=== PATIENT | female | born 1995 | race Caucasian/White ===

== ENCOUNTER 2021-03-14 13:26 | Outpatient (CLI) | payer BC, SELFPAY ==
[2021-03-14] VITALS (8 sets, daily range): BP systolic 107–127; BP diastolic 58–72; PULSE 79–88
[2021-03-14 14:23] LABS: Basophils Percent Auto 0.2 % (0.2-1.2); Eosinophils Absolute Auto 0.1 K/mm3 (0-0.3); Eosinophils Percent Auto 1.1 % (0-4.4); Hematocrit 32.9 % (37.0-47.0); Hemoglobin 11.3 g/dL (12.0-15.0); Immature Granulocyte Absolute 0.08 K/mm3 (0.00-0.031); Immature Granulocyte Percent A 0.6 % (0-0.5); Lymphocytes Absolute Auto 1.44 K/mm3 (0.9-3.2); Lymphocytes Percent Auto 11.5 % (18.3-44.2); Mean Corpuscular HGB Conc 34.3 g/dl (32-36); Mean Corpuscular Hemoglobin 31.7 pg (26-34); Mean Corpuscular Volume 92.4 fl (80-100); Monocytes Absolute Auto 0.7 K/mm3 (0.1-0.6); Monocytes Percent Auto 5.7 % (2.6-8.5); Neutrophils Absolute Auto 10.1 K/mm3 (1.3-6.7); Neutrophils Percent Auto 80.9 % (45.5-73.1); Platelet Count Result 172 k/mm3 (150-375); Red Blood Count 3.56 M/mm3 (4.2-5.4); Red Cell Distribution Width 13.1 % (11.5-14.5); White Blood Count 12.5 K/mm3 (4.5-10.0)
[2021-03-14 14:36] LABS: Alanine Aminotransferase 15 U/L (4-35); Albumin Level 3.3 g/dL (3.5-5.1); Alkaline Phosphatase 59 U/L (38-126); Anion Gap 8 mmol/L (8-16); Aspartate Amino Transferase 23 U/L (14-36); Bilirubin,Total 0.2 mg/dL (0.2-1.3); Blood Urea Nitrogen 4 mg/dL (7-17); Calcium 9.2 mg/dL (8.4-10.2); Carbon Dioxide 24 mmol/L (22-30); Chloride 106 mmol/L (98-107); Estimated Glomerular Filt Rate > 60; Glucose 112 mg/dL (65-105); Potassium 3.5 mmol/L (3.4-5.0); Sodium 138 mmol/L (137-145)
[2021-03-14 14:47] LABS: Add Urine Microscopic? YES; Appearance Urine Clear (Clear); Bacteria Urine 2+ /hpf; Bilirubin Urine Negative (Negative); Blood Urine Negative (Negative); Color Urine Straw (Yellow); Glucose Urine UA Negative (Negative); Ketones Urine Negative (Negative); Leukocyte Esterase Ur Trace LEU/UL (NEGATIVE); Nitrate Urine Negative (Negative); Protein Urine Negative (Negative); RBC Urine 0-2 /hpf (0-2); Squamous Epithelial Cell Urine Occasional /hpf (Few); Urobilinogen Urine Negative mg/dL (<2.0); WBC Urine 0-3 /hpf (0-3)
[2021-03-14 15:10] LABS: Specific Grav Ur 1.004 (1.001-1.035)
[2021-03-14 15:41] LABS: Creatinine Urine 19.4 mg/dL; Total Protein Urine Random 14 mg/dL; Ur Ttl Prot Creatinine Ratio 0.72 mg/mg (0-0.20)
== END 2021-03-14 15:34 | disposition home or self-care (01) ==
LOC: ANHOBOP 13:36 → ANHOBPP 13:37
PROVIDERS: Visit Provider Obstetrics & Gynecology
DX: O13.9 Gestational [pregnancy-induced] hypertension without significant proteinuria, unspecified trimester (principal); Z3A.00 Weeks of gestation of pregnancy not specified
CPT/HCPCS: 36415; 59025; 80053; 81001; 82570; 84156; 84550; 85025; 87086; 99199

== ENCOUNTER 2021-04-06 09:18 | Observation (INO) | payer OTHER, BC, SELFPAY ==
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
--- NOTE | 2021-04-06 09:18 | OBADM ---
This patient, Mami Sarkar, admitted to the OB room OB Post 113 for observation. Patient/family oriented to hospital policies and general routines including ID bracelet, bed and alarms, visiting hours, pain management, procedures, bathroom and other care routines, personal items, smoking policy, room service/diet, and visiting hours. Patient/Family are encouraged to report perceived risks to care and to ask questions if they do not understand what they are told or what they should do.
[2021-04-06 09:40] VITALS: BMI 34.7
[2021-04-06 09:45] VITALS: BP 115/91; PULSE 91
[2021-04-06 10:00] VITALS: BP 119/60; PULSE 90
[2021-04-06 10:15] VITALS: BP 113/61; PULSE 84
[2021-04-06 10:30] VITALS: BP 108/59; PULSE 80
[2021-04-06 10:45] VITALS: BP 118/56; PULSE 81
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
== END 2021-04-06 12:05 | disposition home or self-care (01) ==
PROVIDERS: Admitting Provider Obstetrics & Gynecology; Visit Provider Obstetrics & Gynecology
DX: Z04.1 Encounter for examination and observation following transport accident (principal); V89.2XXA Person injured in unspecified motor-vehicle accident, traffic, initial encounter
CPT/HCPCS: 76815; 84112; G0378; G0379

== ENCOUNTER 2021-05-25 12:20 | Outpatient (RCR) | payer BC, SELFPAY ==
--- NOTE | ~2021-05-25 | US_ITS ---
EXAMINATION: US OB BPP wo non-stress DATE: 05/25/2021 13:19 INDICATION: Nonreactive nonstress test in office, third trimester TECHNIQUE: Real-time pelvic ultrasound was performed. The interpreting radiologist was not present fo r the study. COMPARISON: None. FINDINGS: There is a single living fetus in vertex presentation. The placenta is anterior. heart rate is 123 beats per minute (bpm). Biophysical profile performed by the technologist: breathing (30 sec sustained breathing in 30 minutes): 2 out of 2 movement (3 gross body movements in 30 minutes): 2 out of 2 tone (one episode of rizsumm-nsbacmkoy-urvhney limb movement): 2 out of 2 Amniotic fluid pocket (2 cm): 2 out of 2 Total score: 8 out of 8 IMPRESSION: 1. Single living fetus in vertex presentation. 2. Biophysical profile 8 out of 8. Reviewed, dictated and finalized at location A.
[2021-05-25 12:52] VITALS: BP 118/75; PULSE 82
--- NOTE | 2021-05-25 13:38 | PC.NURSE ---
BPP 05/27, Per Sandra Bright CNM patient to be discharged to home.
== END 2021-07-04 10:03 | disposition home or self-care (01) ==
LOC: ANHOBOP 12:20
PROVIDERS: Visit Provider Obstetrics & Gynecology
DX: O26.893 Other specified pregnancy related conditions, third trimester (principal); Z3A.33 33 weeks gestation of pregnancy
CPT/HCPCS: 59025; 76819

== ENCOUNTER 2021-06-27 15:42 | Emergency (ER) | payer BC, SELFPAY ==
[2021-06-27 15:50] VITALS: BP 131/70; PULSE 76; RESP 16; TEMP 36.6; O2SAT 98
--- NOTE | 2021-06-27 16:07 | ED.EAR ---
HPI - Ear Problem General Chief complaint: Ear Stated complaint: ear pain Source: patient and RN notes reviewed Limitations: no limitations History of Present Illness HPI Narrative: The vaccinated patient, a non-smoker/non drinker who is a G1, P0 EDC 01 June at term, presents with right ear discomfort. Patient states she is previously mostly healthy with possible TMJ syndrome and only diet-controlled, related diabetes. She now has a 1 week history right TMJ and infra mastoid discomfort. Symptoms are mild slightly worse with eating. She wants to be checked for possible ear infection due to the upcoming induction of labor. No fever, URI?sinusitis, discharge, swelling; no loss of taste/smell, CP, vomiting/diarrhea, S OB; no abdominal pains, vaginal discharge, bleeding, decreased motion. Discussed possible causes [infectious, oral maxillary, neurologic/neuralgia] will provide symptomatic relief; patient advised to follow-up with dentist also [for bite block/mouthguard]. Related Data Home Medications Medication Instructions Recorded Confirmed escitalopram oxalate [Lexapro] 20 mg PO DAILY 06/22/21 06/22/21 prenat.vits,norman,tyg-jzmq-hbcnd 1 tablet PO HS 06/22/21 06/22/21 [ #2] Allergies Allergy/AdvReac Type Severity Reaction Status Date / Time No Known Allergies Allergy Verified 06/22/21 15:37 Review of Systems Review of Systems: General/Constitutional: No weight loss,fever Eyes: N0: Redness,discharge Ears/Nose/Throat: No: Epistaxis,ear discharge Respiratory: Denies: Hemoptysis Gastrointestinal: No Vomiting, Bleeding-rectal Skin: No Lumps, eruption Neurologic: No Focal Weakness,Sz Hematologic: Denies: Petechiae/Purpura Psychiatric: No: Suicida ideationl All Other Systems: Reviewed and Negative PMFSH Family History Family History (Updated 06/22/21 @ 15:41 by Kendall Arias RN) Father Colon cancer Grandparent Lung cancer Social History Social History Substance use: never Spiritual care concerns: No Comments At time of signature, agree with nursing past medical, surgical, social and family history. There is no relevant family history pertinent to the presenting complaint Exam Narrative: General Appearance: Well appearing, Well nourished, No distress EYE: PERRLA , EOMI Ears: External ear normal, Auditory canal normal, TM normal Nose: Normal nose, Nares clear Mouth/Throat: Normal appearing, Normal lips, dentition Neck: Supple, No adenopathy, Left palpable click @ TMJ with excursion Respiratory: Airway patent, No respiratory distress GI/ : soft, gravid, NT Skin: Warm, Dry Neurological: A&O x3, CN II-X intact Psychiatric: Normal mood, Normal affect Course Vital Signs Vital signs: Vital Signs Temperature 98 F 06/27/21 15:50 Pulse Rate 76 06/27/21 15:50 Respiratory Rate 16 06/27/21 15:50 Blood Pressure 131/70 06/27/21 15:50 Pulse Oximetry 98 06/27/21 15:50 Temperature 98 F 06/27/21 15:50 Pulse Rate 76 06/27/21 15:50 Respiratory Rate 16 06/27/21 15:50 Blood Pressure 131/70 06/27/21 15:50 Pulse Oximetry 98 06/27/21 15:50 Medical Decision Making Vital Signs Vital Signs: Vital Signs Temperature 98 F 06/27/21 15:50 Pulse Rate 76 06/27/21 15:50 Respiratory Rate 16 06/27/21 15:50 Blood Pressure 131/70 06/27/21 15:50 Pulse Oximetry 98 06/27/21 15:50 Temperature 98 F 06/27/21 15:50 Pulse Rate 76 06/27/21 15:50 Respiratory Rate 16 06/27/21 15:50 Blood Pressure 131/70 06/27/21 15:50 Pulse Oximetry 98 06/27/21 15:50 Discharge Plan Discharge Clinical Impression: Otalgia, right ear, Antepartum complication Patient Disposition: Home, Self-Care Condition: Stable Instructions: Swimmer's Ear (ED), Temporomandibular Disorder (ED) Prescriptions: New bnwwddor-gzygwoufq-WE 3.5-10,000-1 mg/mL-unit/mL-% solution 4 drop RIGHT EAR Q8H Qty: 10 RF: 0 No Action P
== END 2021-06-27 16:15 | disposition home or self-care (01) ==
PROVIDERS: Emergency Provider Emergency Medicine; PCP Family Medicine
DX: O99.891 Other specified diseases and conditions complicating pregnancy (principal); H92.01 Otalgia, right ear; Z3A.00 Weeks of gestation of pregnancy not specified
CPT/HCPCS: 99213; G0463

== ENCOUNTER 2021-07-02 04:51 | Inpatient (IN) | payer BC, SELFPAY ==
[2021-07-02] VITALS (43 sets, daily range): BP systolic 99–135; BP diastolic 52–84; PULSE 61–85; RESP 16–20; TEMP 36.3–37; O2SAT 96–100; BMI 35.4
--- OUTSIDE RECORDS SUMMARY | 2021-07-02 04:57 | XMS_ITS ---
:1995 Author Care Team Providers Name Role Phone MIKE STAHL MD Primary Care Provider [phone] Allergies Code Code System Name Reaction Severity Status Onset NKDA ? Medications Name Status Start Date Stop Date ? ? azelaic acid 15 % topical gel Completed ? APPLY TO FACE BID buspirone 5 mg tablet Active ? Not availa ble buspirone 7.5 mg tablet Completed ? 06/22/20 21 Take 1 tablet twice a day by oral route. cephalexin 500 mg capsule Completed ? 2020 TAKE ONE CAPSULE BY MOUTH THREE TIMES DAILY FOR ACUTE OPIOID TH ERAPY DAYS clindamycin 1 % lotion Active ? Not avail able APPLY TO FACE EVERY MORNING clomiphene citrate 50 mg tablet Completed ? 11/15/2020 TAKE 1 TABLET BY MOUTH EVERY DAY clonazepam 0.5 mg tablet Completed ? 021 Take 1 tablet 3 times a day by oral route. escitalopram 20 mg tablet Active ? Not av ailable TAKE 1 TABLET BY MOUTH EVERY DAY fluconazole 150 mg tablet Completed ? 2020 TAKE BY MOUTH 1 TABLET NOW AND MAY REPEAT IN 1 WEEK IF NEEDED freestyle mis lancets Active ? Not kanika ilable FreeStyle Lancets 28 gauge Active ? Not a vailable USE TO TEST BLOOD SUGAR FOUR TIMES DAILY DIRECTED FreeStyle Lite Meter kit Active ? Not kanika ilable USE TO TEST FOUR TIMES DAILY DIRECTED FreeStyle Lite Strips Active ? Not availa ble lhgjakjq-qdbkbjmqy-kcodrvabq 3.5 Active ? Not available mg/mL-10,000 unit/mL
--- OUTSIDE RECORDS SUMMARY | 2021-07-02 04:57 | XMS_ITS | Encounter Summary ---
:1995 Author Care Team Providers Name Role Phone Rosamaria Sorensen MD Primary Care Provider [phone] Reason for Visit None recorded. Assessment and Plan 1. Gestational diabetes mellitus , class A>1< Pt here for diet teaching. Amna t over ideal ranges for FBS and pp BS. Went over carb counting and carb ranges for e ach meal/snack. Gave ideas for foods to eat for meals/snacks. Discussed drink option s and to avoid soda and juice. Told pt she can go online to [employer] for meal options or to look up low carb meal recipes online for ideas as well. Pt picked up glucometer y and pp meals are normal. Fasting this morning was 53 and dinner the night before was 90. Encouraged bedtime snack and foods high in protein at dinner and for bedtime snack to help fasting sugars. Pt said she felt fine this morning when she woke up, just hungry. Told pt to continue checking BS QID and adjusting diet to fo llow low carb diet to try to keep BS within normal range. Pt aware if sugars aren't controlled by diet we would discuss starting insulin. Went over NST schedule with pt and importance of keeping these appts and checking BS for her and baby's health. P ts questions were answered and pt verbalized understanding. NEELIMA kumar ? non-stress test Discussion Note: None recorded.Patient educational handouts: No information available. Plan of Care Reminders Provider Appointments Ob Routine 07/06/2021 Gabriela Bright, 11:00AM CNM ? Surg Post 07/09/2021 Thang Merritt 10:00AM MD Juan ? [place] on or around ? 08/17/2021 Lab None ? ?
--- OUTSIDE RECORDS SUMMARY | 2021-07-02 04:57 | XMS_ITS | Encounter Summary ---
:1995 Author Care Team Providers Name Role Phone Rosamaria Sorensen MD Primary Care Provider [phone] Reason for Visit None recorded. Assessment and Plan 1. Gestational diabetes mellitus ? US, obstetric, follow-up Discussion Note: None recorded.Patient educational handouts: No information available. Plan of Care Reminders Provider Appointments Ob Routine 07/06/2021 Gabriela Bright, 11:00AM CNM ? Surg Post 07/09/2021 Thang Merritt 10:00AM MD Juan ? Xany on or around ? 08/17/2021 Lab None ? ? recorded. Referral None ? ? recorded. Procedures None ? ? recorded. Surgeries None ? ? recorded. Imaging US, 06/19/2021 [facility], Follow-up Medications Name Start Date ? ? buspirone 5 mg tablet ? Take 1 tablet twice a day by oral route for 30 days. clindamycin 1 % lotion ? APPLY TO FACE EVERY MORNING escitalopram 20 mg tablet ? TAKE 1 TABLET BY MOUTH EVERY DAY freestyle mis lancets ? FreeStyle Lancets 28 gauge ? USE TO TEST BLOOD SUGAR FOUR TIMES DAILY DIRECTED FreeStyle Lite Meter kit ? USE TO TEST FOUR TIMES DAILY DIRECTED FreeS
--- OUTSIDE RECORDS SUMMARY | 2021-07-02 04:57 | XMS_ITS | Encounter Summary ---
:1995 Author Care Team Providers Name Role Phone Rosamaria Sorensen MD Primary Care Provider [phone] Reason for Visit None recorded. Assessment and [...]
--- OUTSIDE RECORDS SUMMARY | 2021-07-02 04:57 | XMS_ITS | Encounter Summary ---
:1995 Author Care Team Providers Name Role Phone Rosamaria Sorensen MD Primary Care Provider [phone] Reason for Visit OB visit Assessment and Plan Assessment Note Patient is ___weeks . Discu ssed plan. 1. Suspected macrosomia ? section (SURG) Discussion Note: None recorded.Patient educational handouts: No information available. Plan of Care Reminders Provider Appointments Ob Routine 07/06/2021 Gabriela Renner 11:00AM SCAR Bright ? Surg Post 07/09/2021 Thang Merritt 10:00AM MD Juan ? Xany on or around ? 08/17/2021 Lab None ? ? recorded. Referral None ? ? recorded. Procedures None ? ? recorded. Surgeries 07/02/2021 [facility] (SURG) [facility] None ? ? recorded. Medications Name Start Date ? ? buspirone 5 mg tablet ? Take 1 tablet twice a day by oral route for 30 days. clindamycin 1 % lotion ? APPLY TO FACE EVERY MORNING escitalopram 20 mg tablet ? TAKE 1 TABLET BY MOUTH EVERY DAY freestyle mis lancets ? FreeStyle Lancets 28 gauge ?
--- OUTSIDE RECORDS SUMMARY | 2021-07-02 04:57 | XMS_ITS | Encounter Summary ---
:1995 Author Care Team Providers Name Role Phone Rosamaria Sorensen MD Primary Care Provider [phone] Reason for Visit None recorded. Assessment and [...]
--- OUTSIDE RECORDS SUMMARY | 2021-07-02 04:57 | XMS_ITS | Encounter Summary ---
:1995 Author Care Team Providers Name Role Phone Rosamaria Sorensen MD Primary Care Provider [phone] Reason for Visit OB visit OB [id number] EDC 07/08/2021 LMP 09/21/2020 Assessment and Plan Assessment Note Patient is __37_weeks . Dis cussed plan. 1. Routine care 2. Anxiety well managed ok to call for re fills ? buspirone 7.5 mg tablet Discussion Note: None recorded.Patient educational handouts: No information available. Plan of Care Reminders Provider Appointments Ob Routine 07/06/2021 Gabriela Bright, 11:00AM CNM ? Surg Post 07/09/2021 Thang Merritt 10:00AM MD Juan ? [place] on or around ? 08/17/2021 Lab None ? ? recorded. Referral None ? ? recorded. Procedures None ? ? recorded. Surgeries None ? ? recorded. Imaging None ? ? recorded. Medications Name Start Date ? ? buspirone 5 mg tablet ? Take 1 tablet twice a day by oral route for 30 days. clindamycin 1 % lotion ? APPLY TO FACE EVERY MORNING escitalopram 20 mg tablet ? TAKE 1 TABLET BY MOUTH EVERY DAY lynnette cortes
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
--- OUTSIDE RECORDS SUMMARY | 2021-07-02 04:57 | XMS_ITS | Encounter Summary ---
:1995 Author Care Team Providers Name Role Phone Rosamaria Sorensen MD Primary Care Provider [phone] Reason for Visit OB visit OB [id number] EDC 07/08/2021 LMP 09/21/2020 Assessment and Plan Assessment Note Patient is 36___weeks . Dis cussed plan. 1. Routine care Discussion Note: None recorded.Patient educational handouts: No information available. Plan of Care Reminders Provider Appointments Ob Routine 07/06/2021 Gabriela Bright, 11:00AM CNM ? Surg Post 07/09/2021 Thang Downs Op 10:00AM MD Juan ? Xany on or [...]
--- OUTSIDE RECORDS SUMMARY | 2021-07-02 04:57 | XMS_ITS | Encounter Summary ---
:1995 Author Care Team Providers Name Role Phone Rosamaria Sorensen MD Primary Care Provider [phone] Reason for Visit None recorded. Assessment and [...]
--- OUTSIDE RECORDS SUMMARY | 2021-07-02 04:57 | XMS_ITS | Encounter Summary ---
:1995 Author Care Team Providers Name Role Phone Rosamaria Sorensen MD Primary Care Provider [phone] Reason for Visit None recorded. Assessment and [...]
--- OUTSIDE RECORDS SUMMARY | 2021-07-02 04:58 | XMS_ITS | Encounter Summary ---
:1995 Author Care Team Providers Name Role Phone Rosamaria Sorensen MD Primary Care Provider [phone] Reason for Visit None recorded. Assessment and [...]
--- OUTSIDE RECORDS SUMMARY | 2021-07-02 04:58 | XMS_ITS | Encounter Summary ---
:1995 Author Care Team Providers Name Role Phone Rosamaria Sorensen MD Primary Care Provider [phone] Reason for Visit None recorded. Assessment and [...]
--- OUTSIDE RECORDS SUMMARY | 2021-07-02 04:58 | XMS_ITS | Encounter Summary ---
:1995 Author Care Team Providers Name Role Phone Rosamaria Sorensen MD Primary Care Provider [phone] Reason for Visit OB visit Assessment and Plan Assessment Note Patient is _35__weeks . Dis cussed plan. 1. Routine care [...] USE TO TEST FOUR TIMES DAILY DIRECTED Free
--- OUTSIDE RECORDS SUMMARY | 2021-07-02 04:58 | XMS_ITS | Encounter Summary ---
:1995 Author Care Team Providers Name Role Phone Rosamaria Sorensen MD Primary Care Provider [phone] Reason for Visit None recorded. Assessment and [...]
--- OUTSIDE RECORDS SUMMARY | 2021-07-02 04:58 | XMS_ITS | Encounter Summary ---
:1995 Author Care Team Providers Name Role Phone Rosamaria Sorensen MD Primary Care Provider [phone] Reason for Visit None recorded. Assessment and [...]
--- OUTSIDE RECORDS SUMMARY | 2021-07-02 04:58 | XMS_ITS | Encounter Summary ---
:1995 Author Care Team Providers Name Role Phone Rosamaria Sorensen MD Primary Care Provider [phone] Reason for Visit None recorded. Assessment and [...] and pt verbalized understanding. NEELIMA kumar ? US, obstetric, follow-up Discussion Note: None recorded.Patient educational handouts: No information available. Plan of Care Reminders Provider Appointments Ob Routine 07/06/2021 Gabriela Bright, 11:00AM CNM ? Surg Post 07/09/2021 Thang Merritt 10:00AM MD Juan ? Biju on or around ? 08/17/2021 Lab None ? ?
--- OUTSIDE RECORDS SUMMARY | 2021-07-02 04:58 | XMS_ITS | Encounter Summary ---
:1995 Author Care Team Providers Name Role Phone Rosamaria Sorensen MD Primary Care Provider [phone] Reason for Visit None recorded. Assessment and Plan 1. Gestational diabetes mellitus , class A>1< ? non-stress test Discussion Note: None recorded.Patient educational handouts: No information available. Plan of Care Reminders Provider Appointments Ob Routine 07/06/2021 Gabriela Bright, 11:00AM CNM ? Surg Post 07/09/2021 Thang Merritt 10:00AM MD Juan ? Xany on or around ? 08/17/2021 Lab None ? ? recorded. Referral None ? ? recorded. Procedures None ? ? recorded. Surgeries None ? ? recorded. Imaging Non-stress 05/22/2021 [facility] Test Medications Name Start Date ? ? buspirone [...] FOUR TIMES DAILY DIRECTED FreeStyle Lite Strips ? neom
--- OUTSIDE RECORDS SUMMARY | 2021-07-02 04:58 | XMS_ITS | Encounter Summary ---
:1995 Author Care Team Providers Name Role Phone Rosamaria Sorensen MD Primary Care Provider [phone] Reason for Visit OB visit Assessment and Plan 1. Routine care 2. Large for gestation age fetus Discussion Note: None recorded.Patient educational handouts: No [...] TIMES DAILY DIRECTED FreeStyle Lite Strips ? wyysrpgq-vickycjsg-rkyewqznw 3.5 mg/mL-
--- OUTSIDE RECORDS SUMMARY | 2021-07-02 04:58 | XMS_ITS | Encounter Summary ---
:1995 Author Care Team Providers Name Role Phone Rosamaria Sorensen MD Primary Care Provider [phone] Reason for Visit None recorded. Assessment and [...]
--- OUTSIDE RECORDS SUMMARY | 2021-07-02 04:58 | XMS_ITS | Encounter Summary ---
:1995 Author Care Team Providers Name Role Phone Rosamaria Sorensen MD Primary Care Provider [phone] Reason for Visit None recorded. Assessment and [...]
--- OUTSIDE RECORDS SUMMARY | 2021-07-02 04:58 | XMS_ITS | Encounter Summary ---
:1995 Author Care Team Providers Name Role Phone Rosamaria Sorensen MD Primary Care Provider [phone] Reason for Visit None recorded. Assessment and [...]
--- OUTSIDE RECORDS SUMMARY | 2021-07-02 04:58 | XMS_ITS | Encounter Summary ---
:1995 Author Care Team Providers Name Role Phone Rosamaria Sorensen MD Primary Care Provider [phone] Reason for Visit OB visit [id number] Assessment and Plan 1. Routine care Discussion Note: None recorded.Patient [...] TIMES DAILY DIRECTED FreeStyle Lite Strips ? rwrptbur-ncfkdyjlw-zynizgmgb 3.5 mg/mL-10,000 unit/mL- 1 % ear ?
--- OUTSIDE RECORDS SUMMARY | 2021-07-02 04:58 | XMS_ITS | Encounter Summary ---
:1995 Author Care Team Providers Name Role Phone Rosamarai Sorensen MD Primary Care Provider [phone] Reason for Visit OB visit OB [id number] EDC 07/08/2021 LMP 09/21/2020 Assessment and Plan Assessment Note Patient is 34___weeks . Dis cussed plan. 1. Routine care [...]
--- OUTSIDE RECORDS SUMMARY | 2021-07-02 04:58 | XMS_ITS | Encounter Summary ---
:1995 Author Care Team Providers Name Role Phone Rosamaria Sorensen MD Primary Care Provider [phone] Reason for Visit None recorded. Assessment and Plan 1. Abnormal heart rate ? US, obstetric, biophysical profile + non-stress test Discussion Note: None recorded.Patient educational [...] Surgeries None ? ? recorded. Imaging US, 06/01/2021 [facility], Biophysical Profile + Non-stress Test Medications Name Start Date ? ? buspirone 5 mg tablet ? Take 1 tablet twice a day by oral route for 30 days. clindamycin 1 % lotion ? APPLY TO FACE EVERY MORNING escitalopram 20 mg tablet ? TAKE 1 TABLET BY MOUTH EVERY DAY freestyle mis lancets ? FreeStyle Lancets 28 gauge ? USE TO TEST BLOOD SUGAR FOUR TIMES DAILY DIREC
--- OUTSIDE RECORDS SUMMARY | 2021-07-02 04:58 | XMS_ITS | Encounter Summary ---
:1995 Author Care Team Providers Name Role Phone Rosamaria Sorensen MD Primary Care Provider [phone] Reason for Visit None recorded. Assessment and [...]
--- OUTSIDE RECORDS SUMMARY | 2021-07-02 04:59 | XMS_ITS | Encounter Summary ---
:1995 Author Care Team Providers Name Role Phone Rosamaria Sorensen MD Primary Care Provider [phone] Reason for Visit None recorded. Assessment and [...] answered and pt verbalized understanding. NEELIMA kumar Discussion Note: None recorded.Patient educational handouts: No information available. Plan of Care Reminders Provider Appointments Ob Routine 07/06/2021 Gabriela Bright, 11:00AM CNM ? Surg Post 07/09/2021 Thang Merritt 10:00AM MD Juan ? Biju on or around ? 08/17/2021 Lab None ? ? recorded.
--- OUTSIDE RECORDS SUMMARY | 2021-07-02 04:59 | XMS_ITS | Encounter Summary ---
:1995 Author Care Team Providers Name Role Phone Rosamaria Sorensen MD Primary Care Provider [phone] Reason for Visit OB visit OB [id number] EDC 06/28/2021 LMP 09/21/2020 Assessment and Plan Assessment Note Patient is _28__weeks . Dis cussed plan. 1. Routine care [...]
--- OUTSIDE RECORDS SUMMARY | 2021-07-02 04:59 | XMS_ITS | Encounter Summary ---
:1995 Author Care Team Providers Name Role Phone Rosamaria Sorensen MD Primary Care Provider [phone] Reason for Visit OB visit Assessment and Plan Assessment Note Patient is _30__weeks . Dis cussed plan. 1. Routine care [...]
--- NOTE | 2021-07-02 05:09 | LDADM ---
This patient, Mami Sarkar, was admitted to Labor/Delivery/Recovery 120 on 07/02/21 at 04:51. Plans for labor, pain management and were discussed with patient. Patient/family oriented to hospital policies and general routines including ID bracelet, bed and alarms, visiting hours, pain management, procedures, bathroom and other care routines, personal items, smoking policy, room service/diet and guest tray routines, infant security routines, and visiting hours. Patient/Family are encouraged to report perceived risks to care and to ask questions if they do not understand what they are told or what they should do. See [facility] for further documentation.
[2021-07-02 05:39] LABS: Glucose Point of Care 72 mg/dl (65-105)
[2021-07-02 05:45] LABS: Basophils Percent Auto 0.4 % (0.2-1.2); Eosinophils Absolute Auto 0.1 K/mm3 (0-0.3); Eosinophils Percent Auto 1.4 % (0-4.4); Hematocrit 37.6 % (37.0-47.0); Hemoglobin 12.7 g/dL (12.0-15.0); Immature Granulocyte Absolute 0.05 K/mm3 (0.00-0.031); Immature Granulocyte Percent A 0.5 % (0-0.5); Immature Platelet Fraction Pct 16.1 % (0.9-11.2); Lymphocytes Absolute Auto 2.06 K/mm3 (0.9-3.2); Mean Corpuscular HGB Conc 33.8 g/dl (32-36); Mean Corpuscular Hemoglobin 30.8 pg (26-34); Mean Corpuscular Volume 91.3 fl (80-100); Monocytes Absolute Auto 0.7 K/mm3 (0.1-0.6); Monocytes Percent Auto 7.7 % (2.6-8.5); Neutrophils Absolute Auto 6.4 K/mm3 (1.3-6.7); Platelet Count Result 137 k/mm3 (150-375); Red Blood Count 4.12 M/mm3 (4.2-5.4); White Blood Count 9.4 K/mm3 (4.5-10.0)
[2021-07-02] MEDS: LACTATED RINGERS 1,000 ML 999 ML IV CONT ×2 (05:48→06:31)
--- NOTE | 2021-07-02 07:23 | PM.IMHP ---
H&P: HPI History of Present Illness Date/Time: 07/02/21 07:23 this patient is a 26-year-old 1 at 39 weeks gestation with a macrosomic infant. We have agreed to perform delivery. She understands that injuries may occur during surgery the result in hospitalization, more surgery, and severe illness. She denies any nausea, vomiting, fever, chills. She denies any chest pain or shortness of breath. She denies any contractions, loss of fluid, vaginal bleeding. Chief Complaint: Term Review of Systems Review of Systems: All systems reviewed & are unremarkable except as noted in HPI and below PMFSH Past Medical History Medical History (Updated 07/02/21 @ 07:25 by Azael Martinez MD) GDM (gestational diabetes mellitus) Family History Family History Father Colon cancer Grandparent Lung cancer Social History Social History Smoking status: Never smoker Second hand tobacco smoke exposure: No Substance use: never Spiritual care concerns: No Meds Home Medications and Allergies Home Medications Medication Instructions Recorded Confirmed Type escitalopram oxalate [Lexapro] 20 mg PO DAILY 06/22/21 06/22/21 History prenat.vits,norman,vle-amkm-nroqj 1 tablet PO HS 06/22/21 06/22/21 History [ #2] Allergies Allergy/AdvReac Type Severity Reaction Status Date / Time No Known Allergies Allergy Verified 06/22/21 15:37 Vital Signs Vital Signs - 24 hr 07/02/21 05:34 07/02/21 05:35 07/02/21 07:21 Temperature 97.8 F Pulse Rate 77 77 Respiratory Rate 18 Blood Pressure 134/71 129/72 Exam Const: General: healthy appearing, comfortable and no acute distress Resp: Auscultation: clear to auscultation bilaterally, no rales, no rhonchi and no wheezes Cardio: Rate: regular rate Heart sounds: no click, no murmurs and no rubs GI: Inspection: non-distended Auscultation: normal bowel sounds Extrem: General: normal to inspection, no pedal edema and no calf tenderness H&P: Results Labs Labs: Short CBC 07/02/21 Range/Units 05:30 WBC 9.4 (4.5-10.0) K/mm3 Hgb 12.7 (12.0-15.0) g/dL Hct 37.6 (37.0-47.0) % Plt Count 137 L (150-375) k/mm3 Assessment and Plan Assessment and plan (1) Term : Code(s): Z34.90 - Encounter for supervision of normal , unspecified, unspecified trimester Status: Acute (2) Macrosomia: Code(s): P08.0 - Exceptionally large baby Status: Acute Assessment and Plan: The patient is a 26-year-old 1 at 39 weeks gestation with macrosomic infant. We have agreed to perform delivery. She understands the risks, benefits, and alternatives. She has completed the informed consent process and is ready to proceed.
--- NOTE | 2021-07-02 07:26 | WPDHPUPDATE1 ---
History and Physical Update Update Date/Time: 07/02/21 07:26 History and Physical has been reviewed, including an updated exam of the patient. There are NO changes in the patient's condition. Risks, benefits, and alternatives have been discussed and questions answered. Patient agrees to proceed with procedure.
[2021-07-02] MEDS: ceFAZolin 2 GM/D5W 50 ML 2 GM/50 ML BAG IVPB (07:43)
--- NOTE | 2021-07-02 08:20 | W.PM.PROC2 ---
Procedure Note - Detailed Date of Procedure 07/02/21 Pre-op Diagnosis LGA, Elective LTCS Post-op Diagnosis same Procedure Performed LTCS Surgeon Azael Martinez MD Anesthesia spinal Indications elective Findings Normal gestational maternal anatomy, LGA 4100gm infant, normal Apgars. Description of Procedure The patient was taken the operating room. She was prepped and draped in dorsal supine position with a leftward tilt. This was done after spinal anesthetic was applied. A low-transverse skin incision was made and carried down till of the fascia with the knife. The fascial incision was made with the knife. The fascial incision was extended laterally with Vaca scissors. The fascia was tented upward superiorly and inferiorly the rectus muscles were dissected off bluntly. The rectus muscles were the midline. The preperitoneal fat and peritoneum were dissected open bluntly at the superior aspect of the rectus muscles. The peritoneal incision was extended superior and inferior with good position of bladder. The uterine incision was made with a scalpel down to the level of the amniotic cavity. The amniotic cavity was entered bluntly. The was delivered. The cord was clamped and cut and the infant was handed off to waiting pediatric staff. Cord bloods were obtained. The placenta was removed manually. The uterus was exteriorized. The uterus was cleared of all clots, debris and membranes. The uterus was closed in 0 Vicryl running lock fashion. An imbricating over a was placed along the incision line as well. The uterus was returned to the abdomen. The gutters were cleared of all clots and debris. The fascia was closed with 0 Vicryl running fashion. The subcutaneous tissue was irrigated pinpoint bleeders were cauterized. The skin was closed with subcuticular absorbable pooja. The skin incision line was covered with glue. The patient tolerated the procedure well. She has taken recovery room in stable condition. Sponge lap and needle counts were correct x2. Estimated Blood Loss 795 Complications No immediate complications Condition stable Disposition PACU
[2021-07-02] MEDS: OXYTOCIN 30 UNITS/NS 500 ML 30 UNITS/500 ML BAG 125 UNITS IV CONT (08:47)
[2021-07-02 09:29] LABS: Rapid Plasma Reagin Non-Reactive (NonReactive)
--- NOTE | 2021-07-02 10:50 | PC.NURSE ---
Pt recovery completed. Pt wheeled into nursery via stretcher. Pt able to do skin to skin and attempt to breastfeed with nursery nurses help.
--- NOTE | 2021-07-02 11:05 | PC.NURSE ---
Pt moving to room 288 for pp care once done feeding. PP RN Amy Alejandro given report. PP RN is helping in nursery at this time.
--- NOTE | 2021-07-02 11:55 | OBPPTRN ---
Patient transferred to post room #288 via stretcher. Support person present. Oriented to unit, room, information board, rooming in, admission packet and security measures. Patient verbalizes understanding.
[2021-07-02] MEDS: LORATADINE 10 MG TABLET PO (12:37)
[2021-07-02] MEDS: KETOROLAC 30 MG/ML VIAL (*BKC) IV PUSH ×2 (12:38→19:41)
[2021-07-02] MEDS: DEXTROSE 5%/0.45% SOD CHL 1,000 ML 125 ML IV CONT (14:37)
[2021-07-02] MEDS: ESCITALOPRAM OXALATE 10 MG TABLET 20 MG PO (22:53)
[2021-07-02] MEDS: DOCUSATE SODIUM 100 MG CAPSULE PO (22:53)
[2021-07-03] MEDS: IBUPROFEN 600 MG TABLET PO ×3 (04:54→17:42)
[2021-07-03 05:00] VITALS: BP 105/65; PULSE 80; RESP 16; TEMP 36.7; O2SAT 96
[2021-07-03 06:23] LABS: Hematocrit 32.5 % (37.0-47.0); Hemoglobin 10.8 g/dL (12.0-15.0); Mean Corpuscular HGB Conc 33.2 g/dl (32-36); Mean Corpuscular Hemoglobin 30.9 pg (26-34); Mean Corpuscular Volume 93.1 fl (80-100); Mean Platelet Volume 12.6 fl (7.4-10.4); Platelet Count Result 133 k/mm3 (150-375); Red Blood Count 3.49 M/mm3 (4.2-5.4); Red Cell Distribution Width 13.2 % (11.5-14.5); White Blood Count 10.6 K/mm3 (4.5-10.0)
--- NOTE | 2021-07-03 08:00 | PC.NURSE ---
Mother called out for assist with feeding. Mother reports infant is sleepy and makes eager attempts to latch with good bursts of nursing. Mother used a nipple shield for most feedings. Mother states she will attempt to remove shield after a few minutes of nursing and infant has been able to complete feeding without shield at times. Skin is intact on both nipples, no redness and bruising noted. Nipple care reviewed of lanolin after feedings, warm compresses as needed. Discussed nipple shield precautions and possible complications. Instructions given on application and cleaning of shield. Patient able to return demonstration on proper application of shield. Discussed the need to initiate pumping if infant continues to nurse with the shield. Patient verbalizes understanding. Reviewed infant feeding cues, frequencies, duration of feedings, feeding elimination flow sheet, and signs of adequate intake. Demonstrated stimulation techniques to wake infant for feeding. Assisted with infant to breast. Reviewed positioning/alignment in cross cradle, holding breast in ?U? hold and guided asymmetrical latch on. Reviewed rational for each. Infant able to latch correctly within a few attempts with shield. nursed eagerly with steady draws and occasional swallowing noted for bursts followed with long pausing. Reviewed signs of a correct latch, effective nursing and suck swallow ratio. Infant was able to maintain latch without discomfort to mother. Suggested mother stimulate while feeding to increase stimulate, increase intake and to assist with maintaining deep latch. Demonstrated how to adjust latch more deeply while feeding if needed Instructed mother to call out for RN assistance if she is unable to latch infant for feeding or she has discomfort with nursing. Instructed feeding should be initiated three hours from start of last feeding or if feeding cues are noted before. Mother voiced understanding of information shared.
--- NOTE | 2021-07-03 08:43 | PM.OBPNVD ---
OB - PN: Subj Subjective Date/time seen: 07/03/21 08:43 Patient comments: no complaints, pain well controlled, tolerating diet and flatus present OB - PN: Obj Data Labs CBC & Chem 7: 07/03/21 06:14 Labs: Laboratory Results - last 24 hr 07/02/21 07/03/21 05:30 06:14 WBC 10.6 H RBC 3.49 L Hgb 10.8 L Hct 32.5 L MCV 93.1 MCH 30.9 MCHC 33.2 RDW 13.2 Plt Count 133 L MPV 12.6 H Immature Gran % (Auto) Not Reportable Neut % (Auto) Not Reportable Lymph % (Auto) Not Reportable Wilcox % (Auto) Not Reportable Eos % (Auto) Not Reportable Baso % (Auto) Not Reportable Lymph # (Auto) Not Reportable Wilcox # (Auto) Not Reportable Eos # (Auto) Not Reportable Baso # (Auto) Not Reportable Abs Immat Gran (auto) Not Reportable Absolute Neuts (auto) Not Reportable Absolute Nucleated RBC Not Reportable Nucleated RBC % Not Reportable RPR Non-reactive OB - PN A/P Plan day: 1 Comments: Post Op LTCS - no problems, routine recovery Time Spent With Patient Time: Total time spent is greater than 50% in coordination of care (as documented) at patient's floor/unit and/or counseling patient: Exam Const: General: cooperative, healthy appearing, comfortable and no acute distress Resp: Auscultation: no crackles, no rales, no rhonchi and no wheezes Cardio: Rhythm: regular rhythm Heart sounds: no click and no murmurs GI: Inspection: non-distended Auscultation: normal bowel sounds Extrem: General: normal to inspection, no pedal edema and no calf tenderness
[2021-07-03] MEDS: MULTIVIT/MIN/PREN/FOL AC/IRON TABLET 1 TAB PO (09:49)
[2021-07-03] MEDS: DOCUSATE SODIUM 100 MG CAPSULE PO ×2 (09:50→17:44)
[2021-07-03] MEDS: TETANUS,DIPHTHERIA,AC PERTUSSIS ADULT (0.5 ML) BOOSTRIX IM (10:42)
--- NOTE | 2021-07-03 11:00 | WPDANLDPN2 ---
Anes-Prog Note L&D Date/Time: 07/03/21 11:00 Comfortable throughout: section Neuraxial method: spinal Epidural/Spinal procedure site: clean & non-tender Neuro status: Neuro function grossly intact. Cardiovascular status: normal Respiratory status: normal Airway patency: baseline Mental status: baseline Post-Op hydration status: normal Vital Signs: Last Vital Signs Temp 36.7 C 07/03/21 05:00 Pulse 80 07/03/21 05:00 Resp 16 07/03/21 05:00 BP 105/65 07/03/21 05:00 Pulse Ox 96 07/03/21 05:00 Pain score (VAS): 0 I/O: Intake & Output 07/02/21 07/03/21 07/03/21 23:59 07:59 15:59 Intake Total 2500 400 Output Total 1800 1100 600 Balance 700 -700 -600 Post-procedural complaints: none Patient feedback: Patient satisfied with anesthetic care.
--- NOTE | 2021-07-03 11:01 | WPDANLDNPN2 ---
Anes-Prog Note L&D-Neuraxial Date/Time: 07/03/21 11:01 Neuraxial medications: intrathecal PF morphine Opiod-related complaints: none Patient feedback: Patient satisfied with post-operative pain management.
[2021-07-03] MEDS: SIMETHICONE 80 MG TAB.CHEW PO ×3 (12:40→20:25)
--- NOTE | 2021-07-03 16:30 | PC.NURSE ---
PT introductions made and plan of care discussed per post op c section, pain management, breast feeding, supplementing and pumping, daily care activities. PT and spouse both recipients to such instructions and no barriers to learning identified at this time. PT received instructions this shift per one to one discussion, mom baby care guide and demonstrations. PT verbalized understanding of such care.
[2021-07-03] MEDS: ACETAMINOPHEN 325 MG TABLET 650 MG PO (17:43)
[2021-07-03] MEDS: LANOLIN (LANSINOH) 7.5 GM CREAM 1 APPLIC TOPICAL (17:45)
[2021-07-03 20:10] VITALS: BP 118/58; PULSE 70; RESP 16; TEMP 36.8; O2SAT 99
[2021-07-03] MEDS: HYDROcodone/acetaminophen (*CRX) 5-325 MG TABLET 1 TAB PO (20:23)
[2021-07-03] MEDS: ESCITALOPRAM OXALATE 10 MG TABLET 20 MG PO (20:40)
[2021-07-04] MEDS: SIMETHICONE 80 MG TAB.CHEW PO ×2 (01:17→08:28)
[2021-07-04] MEDS: IBUPROFEN 600 MG TABLET PO ×2 (01:18→08:28)
[2021-07-04] MEDS: ACETAMINOPHEN 325 MG TABLET 650 MG PO ×2 (01:19→08:28)
--- NOTE | 2021-07-04 08:11 | PM.OBPNVD ---
OB - PN: Subj Subjective Date/time seen: 07/04/21 08:11 Patient comments: no complaints, pain well controlled, incisional pain, tolerating diet and flatus present OB - PN: Obj Data Labs CBC & Chem 7: 07/03/21 06:14 OB - PN A/P Plan day: 2 Plan: routine care Comments: POD#2 LTCS - no problems, Time Spent With Patient Time: Total time spent is greater than 50% in coordination of care (as documented) at patient's floor/unit and/or counseling patient: Exam Const: General: comfortable, no acute distress and alert Resp: Effort & Inspection: normal respiratory effort Auscultation: no crackles, no rales and no rhonchi Cardio: Rate: regular rate Heart sounds: no click, no murmurs and no rubs GI: Inspection: non-distended GI Palp: No Tenderness to palpation present (GI) Auscultation: normal bowel sounds Other: Incision - CDI Extrem: General: normal to inspection, no pedal edema and no calf tenderness
--- NOTE | 2021-07-04 08:12 | P.DS_ITS ---
DS: Admitting Diagnosis Discharge Date 07/04/2021 Admitting Diagnosis Term DS: Discharge Diagnosis Discharge Diagnosis (1) Macrosomia: Code(s): P08.0 - Exceptionally large baby Status: Acute (2) Term : Code(s): Z34.90 - Encounter for supervision of normal , unspecified, unspecified trimester Status: Acute OB - DS: Summary OB Procedures : None OB Procedures Intrapartum: OB Procedures: : None Peripartum Data Infant Delivery Method: Section Procedures: Procedures Operation Date: 07/02/21 07:30 Actual Procedure Side Surgeon p Section Azael Martinez MD Time Spent with Patient Time attestation: Total time spent providing and/or coordinating discharge servi luis: Discharge Plan Discharge Discharging Clinician: Azael Martinez Patient Disposition: Home, Self-Care Activity: pelvic rest Diet: regular Patient Instructions: Antibiotic Form Stand Alone Forms: General Discharge Information Follow-up/Referrals: Azael Martinez MD [Physician] - Discharge Medications: New hydrocodone-acetaminophen 5-325 mg tablet 1 - 2 tablet PO Q4H PRN (Reason: pain) Qty: 25 RF: 0 Continued #2 Tablet 1 tablet PO HS RF: 0 escitalopram oxalate [Lexapro] 20 mg Tablet 20 mg PO DAILY RF: 0 Date of admission: 07/02/21 04:51 Primary Care Provider: Edu,Rosamaria Admitting Provider: Azael Martinez Attending physician on admission: Azael Martinez Condition: Stable
[2021-07-04] MEDS: DOCUSATE SODIUM 100 MG CAPSULE PO (08:28)
[2021-07-04] MEDS: MULTIVIT/MIN/PREN/FOL AC/IRON TABLET 1 TAB PO (08:28)
[2021-07-04 08:30] VITALS: BP 118/67; PULSE 73; RESP 18; TEMP 36.8; O2SAT 100
--- NOTE | 2021-07-04 09:45 | PC.NURSE ---
Mother is able to independently latch with appropriate positioning/alignment without nipple shield for the last several feedings. She denies any nipple discomfort, is feeding as required and waking to feed if needed. Infant has had several effective feedings followed with supplementation in the past 24 hours, and is currently meeting outcomes for weight, output, jaundice and feeding frequencies. Infant is more awake and eager to feed today. continues to require supplementation as mother's choice and is not always satisfied after on both breasts. Mother continues to pump without difficulties or discomfort after all feedings and will until her milk is well established and infant does not require supplement. Mother states she feels confident to continue current feeding plan at home. Mother has her own double electric pump for home use. Discussed increasing supplementation as requires to satisfactions. Reviewed paced feeding and suggested to stop when infant is satisfied, as long as is having required output. With increased supplementation may not want to feed for 4 hours. Mother will continue to pump on feeding schedule and will increase session to 20 minutes if pumping every 4 hours. Reviewed once mother?s milk is established and is effectively feeding infant may have increased intake with nursing. If is effective feeding with long draws and frequent swallowing noted , may be ready to decrease/discontinue supplementation. Advised not to discontinue supplement until ICP, Follow-Up RN or LC has a pre/post weighted evaluation of infant feeding. Reviewed transition to breast milk, signs of adequate intake, and engorgement/relief. Instructed to call ICP if intake/output less than required. Reviewed regular medications mother is taking. Information provided per Jeri. Reviewed community resources on the [facility] website and in the Mom/Baby guide. Information on outpatient services provided. Mother has no further questions at this time.
[2021-07-06 12:01] VITALS: BP 132/78; PULSE 70; RESP 16; TEMP 37.1; O2SAT 100
== END 2021-07-04 11:15 | disposition home or self-care (01) | DRG 788 ==
LOC: ANHLDR 05:09 → ANHOB2 12:34
PROVIDERS: Admitting Provider Obstetrics & Gynecology; PCP Family Medicine; Visit Provider Obstetrics & Gynecology
PROC: 10D00Z1 Extraction of Products of Conception, Low, Open Approach (ICD-10-PCS; CPT 59514; principal; 2021-07-02 07:30)
DX: O36.63X0 Maternal care for excessive fetal growth, third trimester, not applicable or unspecified (principal); Z37.0 Single live birth; Z3A.39 39 weeks gestation of pregnancy; O24.429 Gestational diabetes mellitus in childbirth, unspecified control
CPT/HCPCS: 36415; 82948; 85025; 85055; 86592; 86850; 86900; 86901; 90715; A9270; J0131; J0690; J1885; J2274; J2405; J2590; J7120

== ENCOUNTER 2023-01-30 08:00 | Outpatient (NON) | payer OTHER, BC, SELFPAY | END 2023-01-30 08:01 | disposition home or self-care (01) | LOC: ANHLAB 01-31 09:58 | PROVIDERS: PCP Nurse Practitioner Family; Visit Provider Internal Medicine Gastroenterology | DX: D12.8 Benign neoplasm of rectum (principal) | CPT/HCPCS: 88305 ==

== ENCOUNTER 2023-01-30 12:21 | Day surgery (SDC) | payer OTHER, BC, SELFPAY ==
[2023-01-16 11:48] VITALS: BMI 34.8
[2023-01-17 09:37] VITALS: BMI 32.8
--- NOTE | 2023-01-29 15:04 | PM.HPGS ---
History of Present Illness History of Present Illness Consent: Risks, benefits, and alternatives have been discussed and questions answered. Patient agrees to proceed with procedure. Chief complaint: Family Hx of colon cancer Narrative: Mami Sarkar is a 27 year old female Referred for colon cancer screening. She has a family history of colon cancer, effect her father had colon cancer at age 40. Review of Systems Review of Systems: All systems reviewed & are unremarkable except as noted in HPI and below PMFSH Past Medical History Medical History Anxiety GDM (gestational diabetes mellitus) Family History Family History Father Colon cancer Grandparent Lung cancer Social History Social History Smoking status: Never smoker Second hand tobacco smoke exposure: No Alcohol intake: current Drinks per week: 2 Alcohol use details: SOCIALLY Substance use: never Substance use type: does not use Living arrangements: with family Spiritual care concerns: No Meds Home Medications and Allergies Home Medications Medication Instructions Recorded Confirmed Type escitalopram oxalate 20 mg tablet 20 mg PO DAILY 06/22/21 01/30/23 History (Lexapro) bupropion HCl 75 mg tablet 75 mg PO HS 01/17/23 01/30/23 History spironolactone 50 mg tablet 50 mg PO HS 01/17/23 01/30/23 History Allergies Allergy/AdvReac Type Severity Reaction Status Date / Time No Known Allergies Allergy Verified 01/30/23 12:34 Exam Const: General: alert Orientation/consciousness: patient oriented x3 Resp: Auscultation: clear to auscultation bilaterally Cardio: Rhythm: regular rhythm GI: GI Palp: Yes Soft to palpation and No Tenderness to palpation present (GI) Neuro: General: patient oriented x3 Assessment and Plan Assessment and plan (1) Colon cancer screening: Code(s): Z12.11 - Encounter for screening for malignant neoplasm of colon Status: Acute Assessment and Plan: Colonoscopy with possible biopsy or polypectomy or cautery or injection of substances.
--- NOTE | 2023-01-30 09:37 | WPDANESEPPF ---
Anes - Initial Pre Proc Eval Procedure: Operation Date: 01/30/23 13:00 Proposed Procedures p Diagnostic Colonoscopy - Wilmar Crystal MD Date/Time: 01/30/23 09:37 Surgeon: Wilmar Crystal MD Pre Op Diagnosis: Family Hx of colon cancer Patient Data Age: 27 Gender: F Height: 1.7 m Weight: 95 kg Allergies Allergy/AdvReac Type Severity Reaction Status Date / Time No Known Allergies Allergy Verified 01/30/23 12:34 Home Medications Medication Instructions Recorded Confirmed Type escitalopram oxalate 20 mg tablet 20 mg PO DAILY 06/22/21 01/30/23 History (Lexapro) bupropion HCl 75 mg tablet 75 mg PO HS 01/17/23 01/30/23 History spironolactone 50 mg tablet 50 mg PO HS 01/17/23 01/30/23 History Patient hx anesthesia problems: none Family hx anesthesia problems: none Results Review: All pre-operative results and documents have been reviewed as part of the pre-operative evaluation. [facility] Past Medical History Medical History Anxiety GDM (gestational diabetes mellitus) Family History Family History Father Colon cancer Grandparent Lung cancer Social History Social History Smoking status: Never smoker Second hand tobacco smoke exposure: No Alcohol intake: current Drinks per week: 2 Alcohol use details: SOCIALLY Substance use: never Substance use type: does not use Living arrangements: with family Spiritual care concerns: No Anes - Eval Final PreProcedure Day of Procedure 01/30/23 09:37 Patient weight: obese Heart: regular rate and rhythm Lungs: clear to auscultation Airway: Mallampati scale class II Neurological: alert and oriented Last oral intake: >/= 8 hours ASA classification: II Emergent: no Anesthetic plan: proceed Anesthesia type and monitoring: general GIVS and standard monitoring Results Review: All pre-operative results and documents have been reviewed as part of the pre-operative evaluation. Informed Consent: The patient's anesthetic plan and its attendant risks and benefits were discussed with the patient/family/POA. Questions were solicited and answers provided to the satisfaction of the patient/family/POA.
--- NOTE | 2023-01-30 11:41 | SUR.PREOP ---
PT NOT HERE AT SCHEDULED TIME. CALLED PT. REACHED VOICEMAIL. MESSAGE LEFT TO COME TO [facility] NOW.
[2023-01-30 12:31] VITALS: BMI 32.6
[2023-01-30 12:37] VITALS: BP 110/75; PULSE 77; RESP 16; TEMP 36.6; O2SAT 98
[2023-01-30] MEDS: LACTATED RINGERS 1,000 ML 150 ML IV CONT (12:50)
[2023-01-30 13:15] VITALS: BP 114/67; PULSE 72; RESP 16; O2SAT 100
--- NOTE | 2023-01-30 13:21 | WPDANESPN ---
Anes - Prog Note Post-Op Date/Time: 01/30/23 13:21 Cardiovascular status: normal Respiratory status: normal Airway patency: baseline Mental status: baseline Post-Op hydration status: normal Vital Signs: Last Vital Signs Temp 36.6 C 01/30/23 12:37 Pulse 72 01/30/23 13:15 Resp 16 01/30/23 13:15 BP 114/67 01/30/23 13:15 Pulse Ox 100 01/30/23 13:15 O2 Del Method Room Air 01/30/23 13:15 Pain Score (VAS): 0 I/O: Intake & Output 01/29/23 01/30/23 01/30/23 23:59 07:59 15:59 Intake Total 300 Balance 300 Post-procedural complaints: none Patient Feedback: Patient satisfied with anesthetic care. Other Findings: Patient vital signs back to baseline. Patient denies nausea and vomiting. Patient's pain under control. Patient OK for discharge.
[2023-01-30 13:25] VITALS: BP 108/69; PULSE 67; RESP 18; O2SAT 100
[2023-01-30 13:35] VITALS: BP 115/82; PULSE 62; RESP 20; O2SAT 100
== END 2023-01-30 13:51 | disposition home or self-care (01) ==
PROVIDERS: PCP Nurse Practitioner Family; Visit Provider Internal Medicine Gastroenterology
PROC: 0DJD8ZZ Inspection of Lower Intestinal Tract, Via Natural or Artificial Opening Endoscopic (ICD-10-PCS; CPT 45378; principal; 2023-01-30 13:00)
DX: Z12.11 Encounter for screening for malignant neoplasm of colon (principal)
CPT/HCPCS: 45385

== ENCOUNTER → 2023-07-02 14:34 | Outpatient (CLI) | payer OTHER, BC, SELFPAY ==
--- NOTE | ~2023-07-02 | US_ITS ---
EXAMINATION: US OB <= 14 weeks fetus DATE: 07/02/2023 15:00 INDICATION: First trimester dating and viability assessment TECHNIQUE: Real-time pelvic transabdominal and transvaginal ultrasound was performed. COMPARISON: None. FINDINGS: The uterus measures 10.2 x 6.7 x 4.7 cm. There is an intrauterine gestational sac. A yolk s ac is identified. heart motion is identified measuring 163 beats per minute (bpm) by M-mode Dop pler. The crown rump length measures 1.4 cm, which correlates with an estimated gestational age of 7 weeks and 5 day(s) (+/-) 5 day(s). The ovaries are not visualized however no adnexal abnormality is seen. There is no free fluid in the pelvis. IMPRESSION: 1. Live intrauterine with an estimated gestational age of 7 weeks and 5 day(s) (+/-) 5 day( s) and an estimated delivery date of 02/13/2024. Reviewed, dictated and finalized at location F. IMPRESSION: 1. Live intrauterine with an estimated gestational age of 7 weeks and 5 day(s) (+/-) 5 day(s) and an estimated delivery date of 02/13/2024.
== END ==
PROVIDERS: PCP Advanced Practice Midwife; Visit Provider Advanced Practice Midwife
DX: O36.80X0 Pregnancy with inconclusive fetal viability, not applicable or unspecified (principal); Z3A.01 Less than 8 weeks gestation of pregnancy
CPT/HCPCS: 76801

== ENCOUNTER 2023-09-17 16:05 | Observation (INO) | payer OTHER, BC, SELFPAY ==
[2023-09-17] VITALS (19 sets, daily range): BP systolic 110–119; BP diastolic 59–62; PULSE 69–89; O2SAT 97–100; BMI 33.8
--- NOTE | 2023-09-17 16:44 | PC.NURSE ---
Used doppler to find FHT's and then hand held U/S transducer for a little over a minute to trace FHT's on this 19 6/7 fetus. Hannibal applied to monitor for contractions. Pt states the cramping she was having only lasts 2-3 secs and is a sharp cramp she feels on either side of abdomen.
--- NOTE | 2023-09-17 16:50 | PC.NURSE ---
Pt given external marker to press at beginning and end of any cramping she feels.
--- NOTE | 2023-09-17 16:52 | OBADM ---
This patient, Mami Sarkar, admitted to the OB room 113 for observation. Patient/family oriented to hospital policies and general routines including ID bracelet, bed and alarms, visiting hours, pain management, procedures, bathroom and other care routines, personal items, smoking policy, room service/diet, and visiting hours. Patient/Family are encouraged to report perceived risks to care and to ask questions if they do not understand what they are told or what they should do.
--- NOTE | 2023-09-17 17:36 | PC.NURSE ---
[facility] informed pt has been having some cramping on and off during the , but felt it a more today. Pt reports sharp cramping on either side of abdomen approximately 3 x's / hr lasting 2-3 secs each. Pt has marked 1 cramp in the hour she has been on the monitor. No contractions per monitor. FHT's 140 per U/S transducer. Pt has felt a couple of kicks since being here. OK to discharge to home.
--- NOTE | 2023-10-06 07:47 | PM.OBTRLD ---
OB - Triage/Final Diagnosis Visit Information Date of evaluation: 09/17/23 Reason for evaluation: threatened labor Comments/Additional reasons for admission: I have assessed the risk for this patient, Mami Sarkar, and determined that she would benefit from observation care. Evaluation Comments: Per RN, very few ctx. NST reactive. VSS
== END 2023-09-17 18:15 | disposition home or self-care (01) ==
LOC: ANHOBPP 18:09 → ANHLDR 18:28
PROVIDERS: Admitting Provider Obstetrics & Gynecology Gynecology; PCP Advanced Practice Midwife; Visit Provider Obstetrics & Gynecology Gynecology
DX: O47.02 False labor before 37 completed weeks of gestation, second trimester (principal); Z3A.19 19 weeks gestation of pregnancy
CPT/HCPCS: 84112; G0378; G0379

== ENCOUNTER 2023-12-12 17:08 | Observation (INO) | payer OTHER, BC, SELFPAY ==
[2023-12-12 17:41] VITALS: BP 115/52; PULSE 83
[2023-12-12 17:49] VITALS: BMI 37.3
--- NOTE | 2023-12-12 17:50 | OBADM ---
This patient, Mami Sarkar, admitted to the OB room OB Post 112 for observation. Patient/family oriented to hospital policies and general routines including ID bracelet, bed and alarms, visiting hours, pain management, procedures, bathroom and other care routines, personal items, smoking policy, room service/diet, and visiting hours. Patient/Family are encouraged to report perceived risks to care and to ask questions if they do not understand what they are told or what they should do.
[2023-12-12 18:01] VITALS: BP 101/62; PULSE 84
[2023-12-12 18:16] VITALS: BP 106/58; PULSE 84
[2023-12-12 18:44] LABS: Appearance Urine Clear (Clear); Bacteria Urine 1+ /hpf; Bilirubin Urine Negative (Negative); Blood Urine Negative (Negative); Color Urine Yellow (Yellow); Glucose Urine UA Negative (Negative); Ketones Urine 1+ mg/dL (Negative); Leukocyte Esterase Ur 1+ LEU/UL (Negative); Nitrate Urine Negative (Negative); Non Pathogenic Casts 0-2; Protein Urine Negative (Negative); Squamous Epithelial Cell Urine Few /hpf (Few)
[2023-12-12 19:23] LABS: Add Urine Microscopic? YES
[2023-12-12] MEDS: NITROFURANTOIN MONOHYD MACROCR 100 MG CAP PO (20:02)
[2023-12-12 20:03] VITALS: BMI 35.9
--- NOTE | 2023-12-16 11:55 | P.PNOB_ITS ---
OB - Triage/Final Diagnosis Visit Information Comments/Additional reasons for admission: I have assessed the risk for this patient, Mami Sarkar, and determined that she would benefit from observation care. Evaluation Laboratory results: Laboratory Tests 12/12/23 17:56 Urine Color Yellow Urine Appearance Clear Urine pH 6.0 Ur Specific [place] 1.020 Urine Protein Negative Urine Glucose (UA) Negative Urine Ketones 1+ H Ur Blood (Man) Negative Urine Nitrate Negative Urine Bilirubin Negative Urine Urobilinogen 1.0 Leukocyte Esterase Rfl 1+ H Urine RBC 3-5 H Urine WBC 11-20 H Ur Squamous Epith Cells Few Urine Bacteria 1+ H Urine Casts 0-2 Final Diagnosis (1) False labor: Code(s): O47.9 - False labor, unspecified Status: Acute
== END 2023-12-12 20:09 | disposition home or self-care (01) ==
PROVIDERS: Admitting Provider Obstetrics & Gynecology Gynecology; PCP Advanced Practice Midwife; Visit Provider Obstetrics & Gynecology
DX: O47.03 False labor before 37 completed weeks of gestation, third trimester (principal); Z3A.32 32 weeks gestation of pregnancy
CPT/HCPCS: 81001; 87086; A9270; G0378; G0379

== ENCOUNTER 2023-12-26 11:55 | Outpatient (CLI) | payer OTHER, BC, SELFPAY ==
--- NOTE | ~2023-12-26 | US_ITS ---
EXAMINATION: US OB limited w BPP DATE: 12/26/2023 14:03 INDICATION: Nonreactive nonstress test during third trimester TECHNIQUE: Real-time pelvic ultrasound was performed. The interpreting radiologist was not present fo r the study. COMPARISON: None. FINDINGS: There is a single living fetus in vertex presentation. The placenta is posterior/fundal. heart rate is 124 beats per minute (bpm). The amniotic fluid index is 20.3 cm which is normal (normal range : 8.3 cm to 24.3 cm). Biophysical profile performed by the technologist: breathing (30 sec sustained breathing in 30 minutes): 2 out of 2 movement (3 gross body movements in 30 minutes): 2 out of 2 tone (one episode of gixhqzf-ftzgzeomy-swuslrl limb movement): 2 out of 2 Amniotic fluid pocket (2 cm): 2 out of 2 Total score: 8 out of 8 IMPRESSION: 1. Single living fetus in vertex presentation. 2. Biophysical profile 8 out of 8. 3. Normal amniotic fluid index. Reviewed, dictated and finalized at location B. MANAGER CPA
[2023-12-26 12:27] LABS: Basophils Percent Auto 0.2 % (0.2-1.2); Eosinophils Absolute Auto 0.1 K/mm3 (0-0.3); Hematocrit 37.7 % (37.0-47.0); Hemoglobin 12.6 g/dL (12.0-15.0); Immature Granulocyte Absolute 0.07 K/mm3 (0.00-0.031); Immature Granulocyte Percent A 0.6 % (0-0.5); Lymphocytes Absolute Auto 1.98 K/mm3 (0.9-3.2); Lymphocytes Percent Auto 16.3 % (18.3-44.2); Mean Corpuscular HGB Conc 33.4 g/dl (32-36); Mean Corpuscular Hemoglobin 30.9 pg (26-34); Mean Corpuscular Volume 92.4 fl (80-100); Mean Platelet Volume 12.4 fl (7.4-10.4); Monocytes Absolute Auto 0.6 K/mm3 (0.1-0.6); Monocytes Percent Auto 5.3 % (2.6-8.5); Neutrophils Absolute Auto 9.3 K/mm3 (1.3-6.7); Neutrophils Percent Auto 76.6 % (45.5-73.1); Platelet Count Result 171 k/mm3 (150-375); Red Blood Count 4.08 M/mm3 (4.2-5.4); Red Cell Distribution Width 13.2 % (11.5-14.5); White Blood Count 12.1 K/mm3 (4.5-10.0)
[2023-12-26 12:31] VITALS: BP 103/58; PULSE 77
[2023-12-26 12:37] LABS: Creatinine Urine 218.1 mg/dL
[2023-12-26 12:39] LABS: Total Protein Urine Random < 5 mg/dL; Ur Ttl Prot Creatinine Ratio < 0.02 mg/mg (0-0.20)
[2023-12-26 12:47] LABS: Appearance Urine Cloudy (Clear); Bacteria Urine 4+ /hpf; Bilirubin Urine Negative (Negative); Blood Urine Negative (Negative); Color Urine Yellow (Yellow); Glucose Urine UA Negative (Negative); Ketones Urine Trace mg/dL (Negative); Leukocyte Esterase Ur 2+ LEU/UL (Negative); Need Manual Microscopic Reviewed; Nitrate Urine Negative (Negative); Protein Urine Trace mg/dL (Negative); Specific Grav Ur 1.024 (1.001-1.035); Squamous Epithelial Cell Urine Many /hpf (Few); WBC Urine 51-100 /hpf
[2023-12-26 12:48] LABS: Add Urine Microscopic? YES
[2023-12-26 12:52] LABS: Alanine Aminotransferase 12 U/L (6-35); Albumin Level 3.7 g/dL (3.5-5.1); Alkaline Phosphatase 79 U/L (38-126); Anion Gap 5 mmol/L (8-16); Aspartate Amino Transferase 22 U/L (14-36); Bilirubin,Total 0.6 mg/dL (0.2-1.3); Blood Urea Nitrogen 7 mg/dL (7-17); Calcium 8.9 mg/dL (8.4-10.2); Carbon Dioxide 21 mmol/L (22-30); Chloride 106 mmol/L (98-107); Estimated Glomerular Filt Rate > 60; Glucose 77 mg/dL (65-110); Potassium 3.9 mmol/L (3.4-5.0); Sodium 132 mmol/L (137-145); Uric Acid 5.1 mg/dL (2.5-7.5)
[2023-12-26 14:28] VITALS: BP 103/58; PULSE 77
[2023-12-26 14:32] VITALS: BMI 36.2
[2023-12-26 14:33] VITALS: BP 103/58; PULSE 77
== END 2023-12-26 14:34 ==
LOC: ANHOBOP 12:00 → ANHOBPP 12:01
PROVIDERS: PCP Advanced Practice Midwife; Visit Provider Obstetrics & Gynecology Gynecology
DX: O13.9 Gestational [pregnancy-induced] hypertension without significant proteinuria, unspecified trimester (principal); Z3A.00 Weeks of gestation of pregnancy not specified
CPT/HCPCS: 36415; 59025; 76815; 76819; 80053; 81001; 81050; 82570; 82575; 84156; 84550; 85025; 87086; 99199

== ENCOUNTER 2023-12-27 15:33 | Outpatient (NON) | payer OTHER, BC, SELFPAY ==
[2023-12-27 15:36] VITALS: BMI 35.9
[2023-12-27 16:20] LABS: Collection Time Urine 24 HOURS
[2023-12-27 16:58] LABS: Creatinine Urine 73.8 mg/dL; Patient Weight 229 Lbs; Total Protein Urine Random 9 mg/dL
[2023-12-27 17:22] LABS: Creatinine Clearance Urine 174.4 ml/min (75-125); Total Protein Urine 24 Hr 189 mg/24hr (28-141); Total Volume 24 Hour Urine 2100 ml
== END 2023-12-27 15:34 | disposition home or self-care (01) ==
LOC: ANHOBOP 15:34
PROVIDERS: PCP Advanced Practice Midwife; Visit Provider Obstetrics & Gynecology Gynecology
DX: Z34.90 Encounter for supervision of normal pregnancy, unspecified, unspecified trimester (principal); Z3A.00 Weeks of gestation of pregnancy not specified; R03.0 Elevated blood-pressure reading, without diagnosis of hypertension
CPT/HCPCS: 81050; 82575; 84156

== ENCOUNTER 2024-01-06 11:23 | Outpatient (CLI) | payer OTHER, BC, SELFPAY ==
--- NOTE | ~2024-01-06 | US_ITS ---
EXAMINATION: US OB BPP wo non-stress DATE: 01/06/2024 11:45 INDICATION: Nonreactive nonstress test during third trimester . Gestational diabetes. TECHNIQUE: Real-time pelvic ultrasound was performed. The interpreting radiologist was not present fo r the study. COMPARISON: None. FINDINGS: There is a single living fetus in vertex presentation. The placenta is posterior fundal and not low- lying. heart rate is 131 beats per minute (bpm). Normal amniotic fluid index of 14.6 cm (5th%-9 5%: 8.1-24.8 cm at 34 weeks estimated gestational age) Biophysical profile performed by the technologist: breathing (30 sec sustained breathing in 30 minutes): 2 out of 2 movement (3 gross body movements in 30 minutes): 2 out of 2 tone (one episode of afhzqsl-uyfuclrom-mlzaypz limb movement): 2 out of 2 Amniotic fluid pocket (2 cm): 2 out of 2 Total score: 8 out of 8 IMPRESSION: 1. Single living fetus in vertex presentation with heart rate of 131 bpm. 2. Biophysical profile 8 out of 8. Reviewed, dictated and finalized at location A.
== END 2024-01-06 11:24 ==
LOC: MICIMG 11:24
PROVIDERS: PCP Obstetrics & Gynecology Gynecology; Visit Provider Obstetrics & Gynecology Gynecology
DX: O24.419 Gestational diabetes mellitus in pregnancy, unspecified control (principal); Z3A.00 Weeks of gestation of pregnancy not specified
CPT/HCPCS: 76819

== ENCOUNTER 2024-01-14 14:16 | Observation (INO) | payer OTHER, BC, SELFPAY ==
[2024-01-14 15:01] VITALS: BP 114/63; PULSE 76
[2024-01-14 15:16] VITALS: BP 111/59; PULSE 77
--- NOTE | 2024-01-14 15:52 | OBADM ---
This patient, Mami Sarkar, admitted to the OB room [facility] Post [facility] for observation. Patient/family oriented to hospital policies and general routines including ID bracelet, bed and alarms, visiting hours, pain management, procedures, bathroom and other care routines, personal items, smoking policy, room service/diet, and visiting hours. Patient/Family are encouraged to report perceived risks to care and to ask questions if they do not understand what they are told or what they should do.
--- NOTE | 2024-01-19 10:15 | PM.OBTRLD ---
OB - Triage/Final Diagnosis Visit Information Reason for evaluation: other ( Leaking vaginal fluid) Comments/Additional reasons for admission: ROM Plus negative with no evidence of ruptured membranes I have assessed the risk for this patient, Mami Sarkar, and determined that she would benefit from observation care.
== END 2024-01-14 15:56 | disposition home or self-care (01) ==
PROVIDERS: Admitting Provider Obstetrics & Gynecology Gynecology; Visit Provider Obstetrics & Gynecology Gynecology
DX: O42.913 Preterm premature rupture of membranes, unspecified as to length of time between rupture and onset of labor, third trimester (principal); Z3A.36 36 weeks gestation of pregnancy
CPT/HCPCS: 84112; G0378; G0379

== ENCOUNTER 2024-01-19 11:20 | Outpatient (RCR) | payer OTHER, BC, SELFPAY ==
[2023-12-22 13:01] VITALS: BP 115/59; PULSE 82
[2023-12-30 12:51] VITALS: BP 111/60; PULSE 85
[2024-01-12 12:37] VITALS: BP 120/66; PULSE 85
--- NOTE | ~2024-01-19 | US_ITS ---
EXAMINATION: US OB follow up w BPP DATE: 12/30/2023 13:32 INDICATION: Maternal gestational diabetes. Assess growth, amniotic fluid index and biophysical profile TECHNIQUE: Real-time pelvic ultrasound was performed. The interpreting radiologist was not present fo r the study. COMPARISON: 12/26/2023 FINDINGS: There is a single living fetus in vertex presentation. The placenta is left fundal. heart rate is 122 beats per minute (bpm). Normal amniotic fluid index of 13.7 cm (5th%-95%: 8.3-24.5 cm at 33 w eeks estimated gestational age) Biophysical profile performed by the technologist: breathing (30 sec sustained breathing in 30 minutes): 2 out of 2 movement (3 gross body movements in 30 minutes): 2 out of 2 tone (one episode of vahemxj-ijpbxoajd-pqldcqe limb movement): 2 out of 2 Amniotic fluid pocket (2 cm): 2 out of 2 Total score: 8 out of 8 The following biometric data were obtained: BPD: 8.7 cm -> 35 weeks 1 days Head circumference: 31.5 cm -> 35 weeks 2 days Abdominal circumference: 31.3 cm -> 35 weeks 2 days Femur length: 6.3 cm -> 32 weeks 5 days These measurements are concordant. Head circumference to abdominal circumference ratio: 1.01 (normal range 0.94-1.11). Estimated weight: 2461 g (+/-) 369 g or 5 lbs. 7 oz. (+/-) 13 oz. IMPRESSION: 1. Single living fetus in vertex presentation with heart rate of 122 bpm. 2. Normal amniotic fluid index of 13.7 cm. 3. Estimated weight is 73rd percentile by Hadlock criteria when 02/13/2024 is used as the estima aldair date of delivery (KIMO). Please correlate with clinical information or earlier ultrasounds for mos t accurate KIMO. 4. Biophysical profile 8 out of 8. Reviewed, dictated and finalized at location L. IMPRESSION: 1. Single living fetus in vertex presentation with heart rate of 122 bpm. 2. Normal amniotic fluid index of 13.7 cm. 3. Estimated weight is 73rd percentile by Hadlock criteria when 02/13/2024 is used as the estimated date of delivery (KIMO). Please correlate with clinica l information or earlier ultrasounds for most accurate KIMO. 4. Biophysical profile 8 out of 8.
--- NOTE | ~2024-01-19 | US_ITS ---
EXAMINATION: US OB limited w BPP DATE: 12/22/2023 12:57 INDICATION: Gestational diabetes during third trimester TECHNIQUE: Real-time pelvic ultrasound was performed. The interpreting radiologist was not present fo r the study. COMPARISON: None. FINDINGS: There is a single living fetus in breech presentation. The placenta is fundal/left. heart rate is 124 beats per minute (bpm). The amniotic fluid index is 12.7 cm which is normal (normal range: 8.6 cm to 24.2 cm). Biophysical profile performed by the technologist: breathing (30 sec sustained breathing in 30 minutes): 2 out of 2 movement (3 gross body movements in 30 minutes): 2 out of 2 tone (one episode of vvvjvdt-hexwaurmf-nvruirg limb movement): 2 out of 2 Amniotic fluid pocket (2 cm): 2 out of 2 Total score: 8 out of 8 IMPRESSION: 1. Single living fetus in breech presentation. 2. Biophysical profile 8 out of 8. Reviewed, dictated and finalized at location B. ER MGR
--- NOTE | ~2024-01-19 | US_ITS ---
EXAMINATION: US OB BPP wo non-stress DATE: 01/19/2024 13:38 INDICATION: Decreased movement. Third trimester. TECHNIQUE: Real-time pelvic ultrasound was performed. COMPARISON: Ultrasound 01/12/2024 FINDINGS: There is a single living fetus in transverse lie. The placenta is posterior. heart rate is 141 beats per minute (bpm). Biophysical profile performed by the technologist: breathing (30 sec sustained breathing in 30 minutes): 2 out of 2 movement (3 gross body movements in 30 minutes): 2 out of 2 tone (one episode of tijswry-pvlhsomtl-rdkleup limb movement): 2 out of 2 Amniotic fluid pocket (2 cm): 2 out of 2 Total score: 8 out of 8 IMPRESSION: 1. Single living fetus in transverse lie 2. Biophysical profile 8 out of 8. Reviewed, dictated and finalized at location A.
--- NOTE | ~2024-01-19 | US_ITS ---
EXAMINATION: US OB BPP wo non-stress DATE: 01/12/2024 14:51 CDT INDICATION: Nonreactive stress test. TECHNIQUE: Real-time transabdominal obstetric ultrasound. FINDINGS: Comparison to 01/06/2024 There is a single living fetus in vertex presentation. The placenta is fundal without placenta previ a. cardiac activity and movement is noted with a heart rate of 125 beats per minute. Biophysical profile: breathin of 2 movement: 2 of 2 tone: 2 of 2 Amniotic flud pocket: 2 of 2 Total score: 8 of 8 IMPRESSION: 1. Single living intrauterine in vertex presentation. 2: Total biophysical profile score of 8/8. Reviewed, dictated and finalized at location B.
[2024-01-19 12:57] VITALS: BP 117/64; PULSE 100
--- NOTE | 2024-01-19 13:18 | PC.NURSE ---
1317: RN phoned OB to inform her that patient had a reactive NST and a BPP of 8/8. OB also aware of patient's blood glucose today that has been high. OB ordered to discharge patient home with instructions to call their office with patient's blood Glucose levels sometime today.
== END 2024-02-05 15:32 | disposition home or self-care (01) ==
LOC: ANHOBOP 11:20
PROVIDERS: PCP Advanced Practice Midwife; Visit Provider Advanced Practice Midwife
DX: O36.8130 Decreased fetal movements, third trimester, not applicable or unspecified (principal); Z3A.33 33 weeks gestation of pregnancy; O24.419 Gestational diabetes mellitus in pregnancy, unspecified control; Z3A.34 34 weeks gestation of pregnancy; Z3A.36 36 weeks gestation of pregnancy; Z3A.37 37 weeks gestation of pregnancy
CPT/HCPCS: 59025; 76815; 76816; 76819

== ENCOUNTER 2024-01-27 13:17 | Inpatient (IN) | payer OTHER, BC, SELFPAY ==
[2024-01-27] VITALS (139 sets, daily range): BP systolic 102–152; BP diastolic 54–94; PULSE 64–93; TEMP 36.6–37; O2SAT 97–100; BMI 38.7
[2024-01-27] MEDS: LACTATED RINGERS 1,000 ML 125 ML IV CONT ×2 (14:10→20:24)
--- NOTE | 2024-01-27 14:10 | LDADM ---
This patient, Mami Sarkar, was admitted to Labor/Delivery/Recovery 103 on 01/27/24 at 13:17. Plans for labor, pain management and were discussed with patient. Patient/family oriented to hospital policies and general routines including ID bracelet, bed and alarms, visiting hours, pain management, procedures, bathroom and other care routines, personal items, smoking policy, room service/diet and guest tray routines, infant security routines, and visiting hours. Patient/Family are encouraged to report perceived risks to care and to ask questions if they do not understand what they are told or what they should do. See OBIX for further documentation.
[2024-01-27] MEDS: OXYTOCIN 30 UNITS/NS 500 ML 30 UNITS/500 ML BAG IV CONT (14:20)
[2024-01-27 14:21] LABS: Glucose Point of Care 75 mg/dl (65-105)
[2024-01-27 14:27] LABS: Basophils Percent Auto 0.3 % (0.2-1.2); Eosinophils Absolute Auto 0.1 K/mm3 (0-0.3); Eosinophils Percent Auto 1.3 % (0-4.4); Hematocrit 36.2 % (37.0-47.0); Hemoglobin 12.4 g/dL (12.0-15.0); Immature Granulocyte Absolute 0.04 K/mm3 (0.00-0.031); Immature Granulocyte Percent A 0.4 % (0-0.5); Immature Platelet Fraction Pct 17.6 % (0.9-11.2); Lymphocytes Percent Auto 16.2 % (18.3-44.2); Mean Corpuscular HGB Conc 34.3 g/dl (32-36); Mean Corpuscular Hemoglobin 30.5 pg (26-34); Mean Corpuscular Volume 89.2 fl (80-100); Mean Platelet Volume 12.9 fl (7.4-10.4); Monocytes Absolute Auto 0.5 K/mm3 (0.1-0.6); Monocytes Percent Auto 5.1 % (2.6-8.5); Neutrophils Absolute Auto 7.6 K/mm3 (1.3-6.7); Neutrophils Percent Auto 76.7 % (45.5-73.1); Platelet Count Result 150 k/mm3 (150-375); Red Blood Count 4.06 M/mm3 (4.2-5.4); Red Cell Distribution Width 13.2 % (11.5-14.5); White Blood Count 9.9 K/mm3 (4.5-10.0)
[2024-01-27 15:15] LABS: HIV 1/2 Ab P24 Ag Result Negative (Negative)
--- NOTE | 2024-01-27 17:04 | WPDOBADMIT ---
Obstetrics - Admit Note Admission Note: record reviewed. No pertinent additions to the history and/or any subsequent changes in the physical findings that are not consistent with the expected course of the were found. Additions to the history and/or subsequent changes in the physical findings follow. Pt sent from office today d/t decreased movement at term. Discussed recommendation for delivery and pt strongly desired to have a TOLAC.
--- NOTE | 2024-01-27 17:05 | PM.OBPNLAB ---
Pain Control Date/time seen: 01/27/24 1650 Pain control: tolerating well Comments: Pt feeling occasional uterine contractions/cramping. Pelvic Exam Dilation (cm): 1 Effacement (%): 60 station: -2 Amniotic membrane status: Intact Comments: head well applied to cervix. Contractions Monitor mode: External Contraction pattern: Irregular Status status: Category l Assessment and Plan Pitocin rate (mU/min): 6 Plan: continuous present management Comments: CNM to bedside. Discussed TOLAC process and plan of care previously discussed with Dr. Cui. Plan to attempt rupture of membranes and placement of IUPC. Pt desires to proceed. Partner present and supportive. Pressure applied with single digit to internal cervical os and os stretched to 1cm. Membranes ruptured. Clear fluid and bloody show returned. IUPC inserted easily and clear fluid returned. Plan to titrate pitocin as needed to achieve adequate contraction pattern. Dr. Cui to bedside. updated on pt status. Continue TOLAC.
--- NOTE | 2024-01-27 17:12 | PM.IMHP ---
H&P: HPI History of Present Illness Date/Time: 01/27/24 17:12 Chief Complaint: 28 y.o. at 38 weeks 5 days. Prior section in 2020 for LGA. GDMA2 Anxiety and Depression UTI in Review of Systems Review of Systems: All systems reviewed & are unremarkable except as noted in HPI and below PMFSH Past Medical History Medical History Anxiety GDM (gestational diabetes mellitus) Family History Family History Father Colon cancer Grandparent Lung cancer Social History Social History Smoking status: Never smoker Second hand tobacco smoke exposure: No Alcohol intake: current Drinks per week: 2 Alcohol use details: SOCIALLY Substance use: never Substance use type: does not use Do You Feel Safe in your Home?: Yes Lack of Transportation: No Lack of Food: Never True Current Housing: I Have Housing Concerned About Future Housing: No Difficulty Paying Gas/Electric Bills: No Difficulty Paying for Meds: No Currently Unemployed: No Education: Trade/Vocational Certificate Difficulty w/ Childcare or Family Care: No Living arrangements: with family Spiritual care concerns: No Meds Home Medications and Allergies Home Medications Medication Instructions Recorded Confirmed Type escitalopram oxalate 20 mg tablet 20 mg PO DAILY 06/22/21 09/17/23 History (Lexapro) bupropion HCl 75 mg tablet 75 mg PO HS 01/17/23 09/17/23 History aspirin 81 mg chewable tablet 81 mg PO DAILY 09/17/23 09/17/23 History cyanocobalamin (vitamin B-12) 500 500 mcg PO 3XW 09/17/23 09/17/23 History mcg tablet ergocalciferol (vitamin D2) 1,250 50,000 unit PO WEEKLY 09/17/23 09/17/23 History mcg (50,000 unit) capsule vit no.95-ferrous 1 tablet PO DAILY 09/17/23 09/17/23 History fumarate 28 mg-folic acid 800 mcg tablet () Allergies Allergy/AdvReac Type Severity Reaction Status Date / Time No Known Allergies Allergy Verified 01/30/23 12:34 Vital Signs Vital Signs - 24 hr 01/27/24 13:20 01/27/24 14:40 01/27/24 15:01 Temperature Pulse Rate 79 79 Blood Pressure 122/69 120/68 Pulse Oximetry Oxygen Delivery Room Air 01/27/24 15:27 01/27/24 15:31 01/27/24 15:32 Temperature Pulse Rate 70 Blood Pressure 117/65 Pulse Oximetry 99 100 Oxygen Delivery 01/27/24 15:35 01/27/24 15:40 01/27/24 15:45 Temperature Pulse Rate Blood Pressure Pulse Oximetry 97 99 99 Oxygen Delivery 01/27/24 15:50 01/27/24 15:55 01/27/24 16:00 Temperature Pulse Rate Blood Pressure Pulse Oximetry 99 99 98 Oxygen Delivery 01/27/24 16:01 01/27/24 16:05 01/27/24 16:10 Temperature Pulse Rate 70 Blood Pressure 116/68 Pulse Oximetry 100 99 Oxygen Delivery 01/27/24 16:15 01/27/24 16:20 01/27/24 16:25 Temperature Pulse Rate Blood Pressure Pulse Oximetry 98 97 98 Oxygen Delivery 01/27/24 16:28 01/27/24 14:00 01/27/24 16:32 Temperature 98.1 F Pulse Rate Blood Pressure Pulse Oximetry 99 100 Oxygen Delivery 01/27/24 16:37 01/27/24 16:42 01/27/24 16:47 Temperature Pulse Rate Blood Pressure Pulse Oximetry 100 99 100 Oxygen Delivery 01/27/24 16:52 01/27/24 16:57 01/27/24 17:01 Temperature Pulse Rate 78 Blood Pressure 125/77 Pulse Oximetry 100 99 Oxygen Delivery 01/27/24 17:02 01/27/24 17:07 01/27/24 15:03 Temperature Pulse Rate Blood Pressure 120/68 Pulse Oximetry 97 99 Oxygen Delivery Exam Const: General: comfortable and no acute distress Eyes: General: appearance normal, both eyes and all related structures Neck: Neck: supple Resp: Effort & Inspection: normal respiratory effort Auscultation: clear to auscultation bilaterally Cardio:
--- NOTE | 2024-01-27 17:20 | WPDANESEPP ---
Anes - Eval Pre Procedure Procedure: labor epidural Date/Time: 01/27/24 17:20 Surgeon: ariel Preop Diagnosis: pain during labor Pre Op Diagnosis: IOL Patient Data Age: 28 Gender: F Height: 1.7 m Weight: 112 kg Last Vital Signs Temp 36.7 C 01/27/24 14:00 Pulse 78 01/27/24 17:01 BP 125/77 01/27/24 17:01 Pulse Ox 99 01/27/24 17:17 O2 Del Method Room Air 01/27/24 13:20 Allergies Allergy/AdvReac Type Severity Reaction Status Date / Time No Known Allergies Allergy Verified 01/30/23 12:34 Home Medications Medication Instructions Recorded Confirmed Type escitalopram oxalate 20 mg tablet 20 mg PO DAILY 06/22/21 09/17/23 History (Lexapro) bupropion HCl 75 mg tablet 75 mg PO HS 01/17/23 09/17/23 History aspirin 81 mg chewable tablet 81 mg PO DAILY 09/17/23 09/17/23 History cyanocobalamin (vitamin B-12) 500 500 mcg PO 3XW 09/17/23 09/17/23 History mcg tablet ergocalciferol (vitamin D2) 1,250 50,000 unit PO WEEKLY 09/17/23 09/17/23 History mcg (50,000 unit) capsule vit no.95-ferrous 1 tablet PO DAILY 09/17/23 09/17/23 History fumarate 28 mg-folic acid 800 mcg tablet () Laboratory Tests 01/27/24 01/27/24 13:40 14:03 WBC 9.9 K/mm3 (4.5-10.0) RBC 4.06 L M/mm3 (4.2-5.4) Hgb 12.4 g/dL (12.0-15.0) Hct 36.2 L % (37.0-47.0) MCV 89.2 fl (80-100) MCH 30.5 pg (26-34) MCHC 34.3 g/dl (32-36) RDW 13.2 % (11.5-14.5) Plt Count 150 k/mm3 (150-375) MPV 12.9 H fl (7.4-10.4) Immature Gran % (Auto) 0.4 % (0-0.5) Neut % (Auto) 76.7 H % (45.5-73.1) Lymph % (Auto) 16.2 L % (18.3-44.2) [place] % (Auto) 5.1 % (2.6-8.5) Eos % (Auto) 1.3 % (0-4.4) Baso % (Auto) 0.3 % (0.2-1.2) Lymph # (Auto) 1.60 K/mm3 (0.9-3.2) [place] # (Auto) 0.5 K/mm3 (0.1-0.6) Eos # (Auto) 0.1 K/mm3 (0-0.3) Baso # (Auto) 0.0 K/mm3 (0.0-0.1) Abs Immat Gran (auto) 0.04 H K/mm3 (0.00-0.031) Absolute Neuts (auto) 7.6 H K/mm3 (1.3-6.7) Absolute Nucleated RBC 0.000 K/mm3 (0.0-0.012) Nucleated RBC % 0.0 % (0.0-0.2) % Immature Plt Fraction 17.6 H % (0.9-11.2) POC Capillary Glucose 75 mg/dl (65-105) RPR Pending HIV 1&2 Ab/P24 Ag 4thGn Negative (Negative) Blood Type B Positive Antibody Screen Negative Patient hx anesthesia problems: none Family hx anesthesia problems: none Results Review: All pre-operative results and documents have been reviewed as part of the pre-operative evaluation. [facility] Past Medical History Medical History Anxiety GDM (gestational diabetes mellitus) Family History Family History Father Colon cancer Grandparent Lung cancer Social History Social History Smoking status: Never smoker Second hand tobacco smoke exposure: No Alcohol intake: current Drinks per week: 2 Alcohol use details: SOCIALLY Substance use: never Substance use type: does not use Do You Feel Safe in your Home?: Yes Lack of Transportation: No Lack of Food: Never True Current Housing: I Have Housing Concerned About Future Housing: No Difficulty Paying Gas/Electric Bills: No Difficulty Paying for Meds: No Currently Unemployed: No Education: Trade/Vocational Certificate Difficulty w/ Childcare or Family Care: No Living arrangements: with family Spiritual care concerns: No Exam Day of Procedure 01/27/24 17:20
[2024-01-27 17:47] LABS: Glucose Point of Care 104 mg/dl (65-105)
[2024-01-27 22:01] LABS: Glucose Point of Care 108 mg/dl (65-105)
[2024-01-28] VITALS (218 sets, daily range): BP systolic 86–131; BP diastolic 38–97; PULSE 60–239; RESP 14–19; TEMP 36.3–37.1; O2SAT 90–100
[2024-01-28 02:02] LABS: Glucose Point of Care 73 mg/dl (65-105)
[2024-01-28] MEDS: ONDANSETRON INJ 4 MG/2 ML VIAL IV PUSH ×2 (02:04→09:25)
[2024-01-28] MEDS: PHENYLEPHRINE 1,000 MCG/10 ML SYRINGE 100 MCG IV PUSH ×5 (02:09→04:09)
[2024-01-28] MEDS: LACTATED RINGERS 1,000 ML 125 ML IV CONT ×2 (02:24→06:51)
[2024-01-28] MEDS: CALCIUM CARBONATE (TUMS) 500 MG (200 MG ELEMENTAL) 400 MG PO (02:46)
[2024-01-28] MEDS: FAMOTIDINE 20 MG/2 ML VIAL IV PUSH (06:50)
[2024-01-28] MEDS: diphenhydrAMINE HCl INJ 50 MG/ML VIAL 25 MG IV PUSH (06:52)
[2024-01-28 06:58] LABS: Glucose Point of Care 104 mg/dl (65-105)
--- NOTE | 2024-01-28 07:33 | PM.OBPNLAB ---
Pain Control Date/time seen: 01/28/24 07:33 Pain control: tolerating well and epidural Comments: Getting frustrated. C/o itching despite benadryl. Pelvic Exam Dilation (cm): 1 (1-2) Effacement (%): 60 station: -2 Amniotic membrane status: Ruptured Contractions Monitor mode: Internal Contraction frequency: 6 Contraction pattern: Regular Status status: Category l Assessment and Plan Pitocin rate (mU/min): 10 Assessment: induction ongoing Comments: Took break after no change and reached 20 mu pitocin. Now increasing again. Will increase as need to 20 again and if no change the patient prefers a csection at that point.
--- NOTE | 2024-01-28 08:34 | PM.OBPNLAB ---
Pain Control Date/time seen: 01/28/24 0535. CNM called for update on pt. Pitocin increased to 20 with no cervical change overnight. Pitocin break x 1 hour completed and pitocin now restarted. FHT tracing reassuring per RN. Dr. Cui updated. Pelvic Exam Dilation (cm): 1 (1-2) Effacement (%): 60 station: -2 Amniotic membrane status: Ruptured Contractions Monitor mode: Internal Contraction frequency: 6 Contraction pattern: Regular Status status: Category l
--- NOTE | 2024-01-28 08:35 | PM.OBPNLAB ---
Pain Control Date/time seen: 01/27/24 2200. CNM called unit for update. RN increasing pitocin. Ctx pattern not adequate. FHT tracing reassuring. Plan to increase pitocin by 2 ml q 30 minutes until adequate ctx pattern achieved or until 20ml/hr. If ctx pattern not adequate after one hour at 20ml/hr of pitocin and SVE unchanged, plan pitocin break x 1 hour. Pelvic Exam Dilation (cm): 1 (1-2) Effacement (%): 60 station: -2 Amniotic membrane status: Ruptured Contractions Monitor mode: Internal Contraction frequency: 6 Contraction pattern: Regular Status status: Category l
[2024-01-28 08:56] LABS: Glucose Point of Care 80 mg/dl (65-105)
--- NOTE | 2024-01-28 08:58 | PM.OBPNLAB ---
Pain Control Date/time seen: 01/28/24 08:50 CNM to bedisde. Pt questions answered. Pt requesting SVE and section. Pelvic Exam Dilation (cm): 1 (1.5) Effacement (%): 60 station: -2 Amniotic membrane status: Ruptured Contractions Monitor mode: Internal Contraction pattern: Regular (not adequate) Status status: Category l Assessment and Plan Pitocin rate (mU/min): 16 Comments: SVE unchanged. Ctx pattern not adequate. Pt requesting section. Discussed ctx pattern and pitocin with pt and spouse. Discussed option of increasing pitocin in hopes of achieving adequate ctx. Pt declines and wishes to proceed with . Dr. Cui updated.
[2024-01-28] MEDS: AZITHROMYCIN 500 MG/NS 250 ML 500 MG/250 ML BAG 250 MG IVPB (09:21)
[2024-01-28] MEDS: ACETAMINOPHEN 500 MG TABLET 1000 MG PO (09:23)
[2024-01-28] MEDS: ceFAZolin 2 GM/D5W 50 ML 2 GM/50 ML BAG IVPB (09:37)
--- NOTE | 2024-01-28 09:37 | WPDHPUPDATE1 ---
History and Physical Update Update Date/Time: 01/28/24 09:37 History and Physical has been reviewed, including an updated exam of the patient. There are NO changes in the patient's condition. Risks, benefits, and alternatives have been discussed and questions answered. Patient agrees to proceed with procedure. Patient has decided to no longer attempt and wishes to proceed with repeat csection. Will proceed now.
--- NOTE | 2024-01-28 09:47 | WPDANESEPPF ---
Anes - Initial Pre Proc Eval Procedure: Operation Date: 01/28/24 09:30 Proposed Procedures p Section - Thu Cui MD Operation Date: 01/29/24 07:30 Proposed Procedures p Repeat Section, Bilateral Salpingectomy - Thu Cui MD Date/Time: 01/28/24 09:47 Surgeon: Thu Cui MD Pre Op Diagnosis: IOL Patient Data Age: 28 Gender: F Height: 1.7 m Weight: 112 kg Last Vital Signs Temp 98.1 F 01/28/24 08:26 Pulse 76 01/28/24 09:15 BP 125/74 01/28/24 09:15 Pulse Ox 99 01/28/24 09:28 O2 Del Method Room Air 01/27/24 13:20 Allergies Allergy/AdvReac Type Severity Reaction Status Date / Time No Known Allergies Allergy Verified 01/30/23 12:34 Home Medications Medication Instructions Recorded Confirmed Type escitalopram oxalate 20 mg tablet 20 mg PO DAILY 06/22/21 01/27/24 History (Lexapro) bupropion HCl 75 mg tablet 75 mg PO HS 01/17/23 01/27/24 History aspirin 81 mg chewable tablet 81 mg PO DAILY 09/17/23 01/27/24 History cyanocobalamin (vitamin B-12) 500 500 mcg PO 3XW 09/17/23 01/27/24 History mcg tablet ergocalciferol (vitamin D2) 1,250 50,000 unit PO WEEKLY 09/17/23 01/27/24 History mcg (50,000 unit) capsule vit no.95-ferrous 1 tablet PO DAILY 09/17/23 01/27/24 History fumarate 28 mg-folic acid 800 mcg tablet () Laboratory Tests 01/27/24 01/27/24 01/27/24 13:40 14:03 17:43 WBC 9.9 K/mm3 (4.5-10.0) RBC 4.06 L M/mm3 (4.2-5.4) Hgb 12.4 g/dL (12.0-15.0) Hct 36.2 L % (37.0-47.0) MCV 89.2 fl (80-100) MCH 30.5 pg (26-34) MCHC 34.3 g/dl (32-36) RDW 13.2 % (11.5-14.5) Plt Count 150 k/mm3 (150-375) MPV 12.9 H fl (7.4-10.4) Immature Gran % (Auto) 0.4 % (0-0.5) Neut % (Auto) 76.7 H % (45.5-73.1) Lymph % (Auto) 16.2 L % (18.3-44.2) [place] % (Auto) 5.1 % (2.6-8.5) Eos % (Auto) 1.3 % (0-4.4) Baso % (Auto) 0.3 % (0.2-1.2) Lymph # (Auto) 1.60 K/mm3 (0.9-3.2) [place] # (Auto) 0.5 K/mm3 (0.1-0.6) Eos # (Auto) 0.1 K/mm3 (0-0.3) Baso # (Auto) 0.0 K/mm3 (0.0-0.1) Abs Immat Gran (auto) 0.04 H K/mm3 (0.00-0.031) Absolute Neuts (auto) 7.6 H K/mm3 (1.3-6.7) Absolute Nucleated RBC 0.000 K/mm3 (0.0-0.012) Nucleated RBC % 0.0 % (0.0-0.2) % Immature Plt Fraction 17.6 H % (0.9-11.2) POC Capillary Glucose 75 mg/dl 104 mg/dl (65-105) (65-105) RPR Pending HIV 1&2 Ab/P24 Ag 4thGn Negative (Negative) Blood Type B Positive Antibody Screen Negative 01/27/24 01/28/24 01/28/24 21:59 01:52 06:16 WBC RBC Hgb Hct MCV MCH MCHC RDW Plt Count MPV Immature Gran % (Auto) Neut % (Auto) Lymph % (Auto) [place] % (Auto) Eos % (Auto) Baso % (Auto) Lymph # (Auto) [place] # (Auto) Eos # (Auto) Baso # (Auto) Abs Immat Gran (auto) Absolute Neuts (auto) Absolute Nucleated RBC Nucleated RBC % % Immature Plt Fraction POC Capillary Glucose 108 H mg/dl 73 mg/dl 104 mg/dl (65-105) (65-105) (65-105) RPR HIV 1&2 Ab/P24 Ag 4thGn Blood Type Antibody Screen 01/28/24 08:46 WBC RBC Hgb Hct MCV MCH MCHC RDW Plt Count MPV Immature Gran % (Auto) Neut % (Auto) Lymph % (Auto) [place] % (Auto) Eos % (Auto) Baso % (Auto) Lymph # (Auto)
--- NOTE | 2024-01-28 10:18 | P.OP_ITS ---
Procedure Note - Detailed Date of Procedure 01/28/24 Pre-op Diagnosis Intrauterine at 38 6/7 weeks previous section attempted trial of labor but declined further attempt GDMA2 Post-op Diagnosis Same Procedure Performed repeat section Surgeon Thu Cui MD Anesthesia Epidural Indications patient declined further trial of labor and requested to proceed with Findings female infant 6lb 13oz with 9 and 9 Apgars cord around the neck, body, and arm normal-appearing tubes, ovaries, uterus Description of Procedure The patient is taken to the operating room and placed under anesthesia in the dorsal supine position with a leftward tilt. She was prepped and draped in the usual sterile fashion. Pfannenstiel skin incision was made with a scalpel and carried down to underlying layer of fascia which was nicked in the midline. The incision was extended laterally with Vaca scissors. The fascia was very scarred to the underlying muscle. The rectus muscles are densely adherent to one another. The peritoneum is elevated and entered with Metzenbaum. The incision was extended to be extended with blunt traction but Bovie cautery was required due to adhesions. The bladder blade is placed and the vesicouterine peritoneum tented and entered with Metzenbaum scissors. The incision was extended laterally with Metzenbaum and the bladder flap created digitally. The bladder blade was replaced. The lower uterine segment was incised in transverse fashion with the scalpel. The incision was extended bluntly with traction. The 's head was brought into the incision and elevated as the assistant track and field coach applied fundal pressure. The infant was then fully delivered. The cord is detangled and delayed cord clamping for [id number]. The cord was then clamped and cut. The was handed to the waiting nursery nurse and cord blood and gases were taken. The placenta was removed using manual traction. The uterus is exteriorized and cleared of all clots and debris. The uterine incision was closed using 0 Monocryl in a running locked fashion and a 2nd layer imbricating. The incision was noted to be hemostatic. The cul-de-sac is irrigated and the uterus returned to the abdomen. The gutters were irrigated and the incision again inspected and noted to be hemostatic. The fascia was then closed using 0 Vicryl in a running fashion. Subcutaneous tissues were irrigated and made hemostatic using Bovie cautery. The skin is closed using 4-0 Vicryl in a subcuticular fashion. Dermaflex was placed over the incision. Sponge, needle, and instrument counts are correct per the OR staff. Patient received Ancef prior to incision. Drains Yes ( Hoffmann catheter) Packing No Pathology None sent Complications No immediate complications Condition Stable Disposition Floor
[2024-01-28] MEDS: OXYTOCIN 30 UNITS/NS 500 ML 30 UNITS/500 ML BAG 125 UNITS IV CONT (10:45)
[2024-01-28 11:55] LABS: Glucose Point of Care 95 mg/dl (65-105)
[2024-01-28] MEDS: HYDROmorphone HCL INJ (*CRX) 1 MG/ML SYR 0.25 MG IV PUSH (11:59)
--- NOTE | 2024-01-28 13:15 | PC.NURSE ---
Patient transferred to post room #284 per stretcher from labor and delivery. Support person present. Oriented to unit, room, information board, rooming in, admission packet and security measures. Patient verbalizes understanding.
[2024-01-28] MEDS: HYDROcodone/acetaminophen (*CRX) 10-325 MG TABLET 1 TAB PO (13:35)
[2024-01-28] MEDS: SIMETHICONE 80 MG TAB.CHEW PO ×2 (13:35→16:57)
[2024-01-28 14:40] LABS: Rapid Plasma Reagin Non-Reactive (NonReactive)
[2024-01-28] MEDS: ACETAMINOPHEN 325 MG TABLET 650 MG PO ×2 (15:02→20:42)
[2024-01-28] MEDS: KETOROLAC 15 MG/ML VIAL (*BKC) IV PUSH ×2 (15:02→20:42)
[2024-01-28] MEDS: DEXTROSE 5%/0.45% SOD CHL 1,000 ML 125 ML IV CONT (15:03)
[2024-01-28] MEDS: DOCUSATE SODIUM 100 MG CAPSULE PO (16:57)
[2024-01-28] MEDS: ESCITALOPRAM OXALATE 10 MG TABLET 20 MG PO (20:41)
[2024-01-28] MEDS: MULTIVIT/MIN/PREN/FOL AC/IRON TABLET 1 TAB PO (20:41)
[2024-01-28] MEDS: buPROPion HCL 75 MG TABLET PO (20:41)
[2024-01-29] MEDS: HYDROcodone/acetaminophen (*CRX) 10-325 MG TABLET 1 TAB PO ×2 (02:10→22:01)
--- NOTE | 2024-01-29 02:15 | PC.NURSE ---
Pt called out c/o gas pain in shoulder and neck, rec pt get up and ambulate in room to relieve sx, pt refused states 'that won't help! [place] 10/325mg tab given and Kpad applied to upper back.
[2024-01-29 02:16] VITALS: BP 105/72; PULSE 91; RESP 18; TEMP 36.9; O2SAT 99
[2024-01-29] MEDS: ACETAMINOPHEN 325 MG TABLET 650 MG PO ×4 (03:10→21:12)
[2024-01-29] MEDS: KETOROLAC 15 MG/ML VIAL (*BKC) IV PUSH ×2 (03:11→09:21)
[2024-01-29 05:31] LABS: Basophils Percent Auto 0.2 % (0.2-1.2); Eosinophils Absolute Auto 0.1 K/mm3 (0-0.3); Hematocrit 32.8 % (37.0-47.0); Hemoglobin 10.7 g/dL (12.0-15.0); Immature Granulocyte Absolute 0.05 K/mm3 (0.00-0.031); Immature Granulocyte Percent A 0.5 % (0-0.5); Lymphocytes Absolute Auto 2.22 K/mm3 (0.9-3.2); Lymphocytes Percent Auto 23.8 % (18.3-44.2); Mean Corpuscular HGB Conc 32.6 g/dl (32-36); Mean Corpuscular Hemoglobin 30.6 pg (26-34); Mean Corpuscular Volume 93.7 fl (80-100); Mean Platelet Volume 13.9 fl (7.4-10.4); Monocytes Absolute Auto 0.7 K/mm3 (0.1-0.6); Monocytes Percent Auto 7.9 % (2.6-8.5); Neutrophils Absolute Auto 6.2 K/mm3 (1.3-6.7); Neutrophils Percent Auto 66.6 % (45.5-73.1); Platelet Count Result 113 k/mm3 (150-375); Red Cell Distribution Width 13.4 % (11.5-14.5); White Blood Count 9.3 K/mm3 (4.5-10.0)
--- NOTE | 2024-01-29 06:52 | PM.OBPNVD ---
OB - PN: Subj Subjective Date/time seen: 01/29/24 06:52 Patient comments: no complaints and pain well controlled baby status: doing well OB - PN: Obj Data Labs 01/29/24 04:04 Labs: Laboratory Results - last 24 hr 01/27/24 01/28/24 01/28/24 13:40 06:16 08:46 WBC RBC Hgb Hct MCV MCH MCHC RDW Plt Count MPV Immature Gran % (Auto) Neut % (Auto) Lymph % (Auto) [place] % (Auto) Eos % (Auto) Baso % (Auto) Lymph # (Auto) [place] # (Auto) Eos # (Auto) Baso # (Auto) Abs Immat Gran (auto) Absolute Neuts (auto) Absolute Nucleated RBC Nucleated RBC % % Immature Plt Fraction POC Capillary Glucose 104 80 RPR Non-reactive 01/28/24 01/29/24 11:51 04:04 WBC 9.3 RBC 3.50 L Hgb 10.7 L Hct 32.8 L MCV 93.7 D MCH 30.6 MCHC 32.6 RDW 13.4 Plt Count 113 L MPV 13.9 H Immature Gran % (Auto) 0.5 Neut % (Auto) 66.6 Lymph % (Auto) 23.8 [place] % (Auto) 7.9 Eos % (Auto) 1.0 Baso % (Auto) 0.2 Lymph # (Auto) 2.22 [place] # (Auto) 0.7 H Eos # (Auto) 0.1 Baso # (Auto) 0.0 Abs Immat Gran (auto) 0.05 H Absolute Neuts (auto) 6.2 Absolute Nucleated RBC 0.000 Nucleated RBC % 0.0 % Immature Plt Fraction 17.0 H POC Capillary Glucose 95 RPR OB - PN A/P Plan day: 1 Plan: routine care Time Spent With Patient Time: Total time spent is greater than 50% in coordination of care (as documented) at patient's floor/unit and/or counseling patient: Time with patient: less than 15 minutes Exam Const: General: cooperative, healthy appearing and comfortable Nutritional Appearance: average body habitus Orientation/consciousness: oriented to person, oriented to place and oriented to time Resp: Effort & Inspection: normal respiratory effort Cardio: Rate: regular rate Rhythm: regular rhythm Heart sounds: S1 normal heart sound present and S2 normal heart sound present GI: Inspection: normal to inspection and incision (cdi)
--- NOTE | 2024-01-29 08:00 | WPDANLDPN2 ---
Anes-Prog Note L&D Date/Time: 01/29/24 08:00 Comfortable throughout: labor and section Neuraxial method: epidural Epidural/Spinal procedure site: clean & non-tender Neuro status: Neuro function grossly intact. Cardiovascular status: normal Respiratory status: normal Airway patency: baseline Mental status: baseline Post-Op hydration status: normal Vital Signs: Last Vital Signs Temp 36.9 C 01/29/24 02:16 Pulse 91 01/29/24 02:16 Resp 18 01/29/24 02:16 BP 105/72 01/29/24 02:16 Pulse Ox 99 01/29/24 02:16 O2 Del Method Room Air 01/28/24 12:30 Pain score (VAS): 2/10 I/O: Intake & Output 01/28/24 01/29/24 01/29/24 23:59 07:59 15:59 Intake Total 2000 600 Output Total 2850 800 Balance -850 -200 Post-procedural complaints: none Patient feedback: Patient satisfied with anesthetic care.
[2024-01-29 08:35] VITALS: BP 113/73; PULSE 61; RESP 18; TEMP 36.2; O2SAT 99
[2024-01-29] MEDS: SIMETHICONE 80 MG TAB.CHEW PO ×3 (08:35→18:37)
[2024-01-29] MEDS: MULTIVIT/MIN/PREN/FOL AC/IRON TABLET 1 TAB PO ×2 (08:35→18:36)
[2024-01-29] MEDS: DOCUSATE SODIUM 100 MG CAPSULE PO ×2 (08:35→18:37)
[2024-01-29] MEDS: IBUPROFEN 600 MG TABLET PO ×2 (14:51→21:12)
--- NOTE | 2024-01-29 15:11 | PC.NURSE ---
[id number] Introductions were made. Mother verbalizes she is able to independently latch , denies any nipple discomfort and is responsively feeding. Mother shared that she fed their first child breast milk for 16 months and this infant is latching better than the first one. Infant is currently meeting outcomes for weight, output, jaundice, blood sugar and feeding either at the breast or with a syringe with EBM. Mother declines any additional assistance or education at this time. Mother is encouraged to call for assistance if her infant doesn?t latch, pain with latching, questions or concerns. Mother voiced understanding of information shared along with the mom/baby guide for an additional resource. Reported to the Primary RN.
[2024-01-29 19:21] VITALS: BP 104/69; PULSE 75; RESP 15; TEMP 36.8; O2SAT 98
[2024-01-29] MEDS: buPROPion HCL 75 MG TABLET PO (20:30)
[2024-01-29] MEDS: ESCITALOPRAM OXALATE 10 MG TABLET 20 MG PO (20:30)
[2024-01-29] MEDS: LIDOCAINE 5% PATCH 1 PATCH TRANSDERM (21:11)
[2024-01-30] MEDS: HYDROcodone/acetaminophen (*CRX) 10-325 MG TABLET 1 TAB PO ×2 (01:00→04:10)
[2024-01-30] MEDS: IBUPROFEN 600 MG TABLET PO ×2 (04:10→10:16)
[2024-01-30 07:20] VITALS: BP 120/76; PULSE 86; RESP 18; TEMP 36.3; O2SAT 93
[2024-01-30] MEDS: DOCUSATE SODIUM 100 MG CAPSULE PO (07:31)
[2024-01-30] MEDS: SIMETHICONE 80 MG TAB.CHEW PO (07:31)
--- NOTE | 2024-01-30 09:05 | PM.OBPNVD ---
OB - PN: Subj Subjective Date/time seen: 01/30/24 09:05 Patient comments: no complaints and pain well controlled baby status: doing well OB - PN: Obj Data Labs 01/29/24 04:04 OB - PN A/P Plan day: 2 Plan: routine care, discharge home, follow up 6 weeks (and 1 week) and other (plans condoms until vasectomy) Time Spent With Patient Time: Total time spent is greater than 50% in coordination of care (as documented) at patient's floor/unit and/or counseling patient: Exam Narrative: inc c/d/i : Bimanual exam- vagina & uterus: other (Uterus firm, nt @U)
--- NOTE | 2024-01-30 09:06 | PM.OBDSVD ---
DS: Admitting Diagnosis Discharge Date 01/30/24 Admitting Diagnosis IUP 38 5/7 wks prior csection MIL for decreased movement GDMA2 DS: Discharge Diagnosis Discharge Diagnosis (1) Delivery by section using transverse incision of lower segment of uterus: Code(s): O82 - Encounter for delivery without indication Status: Acute (2) Post-op pain: Code(s): G89.18 - Other acute postprocedural pain Status: Acute OB - DS: Summary OB Procedures : NST, Ultrasound and Other (GDMA2 management) OB Procedures Intrapartum: (repeat) low cervical, transverse OB Procedures: : None Peripartum Data Delivery Method: Section Procedures: Procedures Operation Date: 01/28/24 09:30 Actual Procedure Side Surgeon p Section Thu Cui MD Operation Date: 01/29/24 07:30 <No data on this case meets the specified criteria> complications: none Status at Discharge Functional status at discharge: independent ambulation Overall status at discharge: patient is progressing back to baseline Time Spent with Patient Time attestation: Total time spent providing and/or coordinating discharge services: Discharge Plan Discharge Attending physician on discharge: Thu Cui Discharging Clinician: Thu Cui Anticipated Discharge Date/Time: 01/30/24 09:08 Patient Disposition: Home, Self-Care Activity: may shower, may drive after 2 weeks and pelvic rest Diet: regular Wound Care Instructions: incision open to air Patient Instructions: Antibiotic Form Stand Alone Forms: General Discharge Information Follow-up/Referrals: Thu Cui MD [Physician] - 1 Week (and 6 wk) Discharge Medications: New hydrocodone-acetaminophen 5-325 mg tablet 1 tablet PO Q4H PRN (Reason: pain) Qty: 15 0RF Continued escitalopram oxalate [Lexapro] 20 mg Tablet 20 mg PO DAILY cyanocobalamin (vitamin B-12) 500 mcg Tablet 500 mcg PO 3XW ergocalciferol (vitamin D2) 1,250 mcg (50,000 unit) capsule 50,000 unit PO WEEKLY Rx Instructions: Takes every Friday PNV cmb#95-ferrous fumarate-FA [] 28 mg iron- 800 mcg Tablet 1 tablet PO DAILY bupropion HCl 75 mg tablet 75 mg PO HS Discontinued aspirin 81 mg Tablet,Chewable 81 mg PO DAILY Date of admission: 01/27/24 13:17 Primary Care Provider: Kirstie De Dios Admitting Provider: Thu Cui Attending physician on admission: Thu Cui Condition: Stable
[2024-01-30] MEDS: ACETAMINOPHEN 325 MG TABLET 650 MG PO (10:15)
[2024-01-31 11:51] VITALS: BP 116/73; PULSE 85; RESP 18; TEMP 36.9; O2SAT 99
== END 2024-01-30 10:45 | disposition home or self-care (01) | DRG 788 ==
LOC: ANHLDR 16:49 → ANHOB2 01-28 13:21
PROVIDERS: Admitting Provider Obstetrics & Gynecology Gynecology; PCP Advanced Practice Midwife; Visit Provider Obstetrics & Gynecology Gynecology
PROC: 10D00Z1 Extraction of Products of Conception, Low, Open Approach (ICD-10-PCS; CPT 59514; principal; 2024-01-28 09:30)
DX: O34.219 Maternal care for unspecified type scar from previous cesarean delivery (principal); O76 Abnormality in fetal heart rate and rhythm complicating labor and delivery; O99.344 Other mental disorders complicating childbirth; O24.424 Gestational diabetes mellitus in childbirth, insulin controlled; Z3A.38 38 weeks gestation of pregnancy; Z37.0 Single live birth
CPT/HCPCS: 36415; 82948; 85025; 85055; 86592; 86703; 86850; 86900; 86901; A9270; G0432; J0456; J0690; J1170; J1200; J1885; J2371; J2405; J2590; J2795; J7120